=== PATIENT | male | born 1950 | race Caucasian/White ===

== ENCOUNTER → 2016-06-17 | Outpatient (CLI) | payer BC ==
[~2016-06-17] MED LIST: CHOL100010 PO; DICL-201 PO; IBUP600T44 PO; LISI20TA3 PO; MILK1CAP9; MULTCHW; OMEG10007 PO; OXYC1TAB3 PO
[2016-06-17 14:42] LABS: ALT/SGPT 82 U/L (12-78); AST/SGOT 132 U/L (15-37); BLOOD UREA NITROGEN 13 mg/dl (7-18); BUN/CREATININE RATIO 13.6 (10-20); CALCIUM 8.6 mg/dl (8.5-10.1); CARBON DIOXIDE 26 mmol/L (21-32); CHLORIDE 100 mmol/L (98-107); CREATININE 0.97 mg/dl (0.60-1.40); GLUCOSE 150 mg/dl (70-99); SODIUM 136 mmol/L (136-145)
[2016-06-17 14:48] LABS: ALB/GLOB RATIO 0.7 (0.9-2); ALKALINE PHOSPHATASE 108 U/L (45-117); CHOLESTEROL 143 mg/dl (0-200); CHOLESTEROL/HDL RATIO 2.1; HDL CHOLESTEROL 68 mg/dl; LDL CHOLESTEROL CALCULATED 54 mg/dl; PROSTATE SPECIFIC ANTIGEN 0.702 ng/ml (0.000-4.000); TRIGLYCERIDES 105 mg/dl (0-150); VERY LOW DENSITY LIPOPROT CALC 21 mg/dl
[2016-06-17 15:02] LABS: HEMATOCRIT 35.1 % (42-52); MEAN CELL VOLUME 94.6 fL (80-100); MEAN CORPUSCULAR HEMOGLOBIN 35.3 pg (25-34); MEAN CORPUSCULAR HGB CONC 37.3 g/dl (32-36); MEAN PLATELET VOLUME 12.2 fL (7.4-10.4); PLATELET COUNT 61 K/uL (130-400); RED BLOOD COUNT 3.71 M/uL (4.7-6.1); WHITE BLOOD COUNT 6.21 K/uL (4.8-10.8)
[2016-06-17 15:03] LABS: BASO % 0.8 %; BASO ABS # 0.05 K/uL (0-0.2); COMPLETE YES; EOS % 3.2 %; IG% 0.3 %; LYMPH ABS # 1.55 K/uL (1.2-3.4); MONO % 8.4 %; NEUT % 62.3 %; PLT ESTIMATE DECREASED
[2016-06-21 17:30] LABS: HEPATITIS C VIRAL RNA(LOG) PCR 6.63 LOG IU/ML (<1.18)
== END | disposition home or self-care (01) ==
LOC: C.LAB1850 12:28
PROVIDERS: ATTEND Nurse Practitioner Family
DX: I10 Essential (primary) hypertension (principal); E83.42 Hypomagnesemia; B18.2 Chronic viral hepatitis C; Z13.220 Encounter for screening for lipoid disorders; Z12.5 Encounter for screening for malignant neoplasm of prostate

== ENCOUNTER → 2016-06-25 | Outpatient (CLI) | payer BC ==
[2016-06-25 16:18] LABS: FERRITIN 293.9 ng/ml (8.0-388.0)
== END | disposition home or self-care (01) ==
LOC: C.LAB1850 14:38
PROVIDERS: ATTEND Internal Medicine Hematology & Oncology
DX: E83.119 Hemochromatosis, unspecified (principal)

== ENCOUNTER → 2016-07-19 | Outpatient (CLI) | payer BC ==
[~2016-07-19] MED LIST changes: +OPTIRAY 320 IV PRN
--- NOTE | 2016-07-19 16:39 | DIAGNOSTIC IMAGING REPORT ---
ABDOMEN AND PELVIS CT WITH IV AND ORAL CONTRAST CT DOSE: 537.04 mGy.cm HISTORY: Abnormal liver function tests 06/17/16 1234 CREAK 0.97 TECHNIQUE: Multiaxial CT images of the abdomen and pelvis were performed following the use of intravenous and oral contrast. COMPARISON STUDY: None. FINDINGS: Lung bases are clear. Subtle in homogeneity of the liver. Several microcysts. Slight outer cortical scarring which may indicate early cirrhotic change. Mild splenomegaly. Kidneys demonstrate several parapelvic cyst. There is an 11 mm minimally obstructing calculus left renal pelvis. There is an additional 3 mm nonobstructing calcification lower pole left kidney. Pancreas is uniform. Bowel pattern is nonobstructive. Atherosclerotic change and ectasia of the duct of the abdominal aorta as well as pelvic arterial vascular. Chronic sigmoid diverticulosis. IMPRESSION: 1. Subtle in homogeneity of the internal architecture of the liver. 2. Possible early cirrhotic change. 3. Mild splenomegaly. 4. 11 mm minimally obstructing calculus lower aspect left renal pelvis. 5. Chronic sigmoid diverticulosis. Electronically signed by: Remigio Pena M.D. 07/19/2016 4:37 PM Dictated Date/Time: 07/19/2016 4:32 PM
== END | disposition home or self-care (01) ==
LOC: C.CTS 15:55
PROVIDERS: ATTEND Internal Medicine Gastroenterology
DX: B18.2 Chronic viral hepatitis C (principal); R79.89 Other specified abnormal findings of blood chemistry; N20.0 Calculus of kidney; K57.30 Diverticulosis of large intestine without perforation or abscess without bleeding

== ENCOUNTER → 2017-03-21 | Outpatient (CLI) | payer BC ==
[~2017-03-21] MED LIST changes: -OPTIRAY 320 IV PRN
--- NOTE | 2017-03-21 09:46 | DIAGNOSTIC IMAGING REPORT ---
ABDOMINAL ULTRASOUND, RIGHT UPPER QUADRANT HISTORY: CIRRHOSIS R/O HEPATOMA. COMPARISON: Abdomen and pelvis CT 07/19/2016. FINDINGS: Pancreas: The pancreas demonstrates a normal echotexture. Liver: Nodular contour to the liver consistent with cirrhosis. No hepatic masses identified. There are few small subcentimeter cysts. Gallbladder: No gallbladder wall thickening. No gallstones. CBD: 5 mm. Right kidney: No hydronephrosis. A 1.4 cm right renal cyst. IMPRESSION: Cirrhotic liver. No hepatic masses. Electronically signed by: Leandro Hill M.D. 03/21/2017 9:45 AM Dictated Date/Time: 03/21/2017 9:44 AM
== END | disposition home or self-care (01) ==
LOC: C.ULTR 09:10
PROVIDERS: ATTEND Internal Medicine Gastroenterology
DX: K74.60 Unspecified cirrhosis of liver (principal)

== ENCOUNTER → 2017-08-29 | Outpatient (CLI) | payer BC ==
[2017-08-29 14:08] LABS: HEMOGLOBIN A1C 5.8 % (4.5-5.6)
[2017-08-29 16:00] LABS: ALBUMIN 2.6 gm/dl (3.4-5.0); ALT/SGPT 49 U/L (12-78); AST/SGOT 71 U/L (15-37); BLOOD UREA NITROGEN 13 mg/dl (7-18); CALCIUM 8.7 mg/dl (8.5-10.1); CARBON DIOXIDE 24 mmol/L (21-32); CREATININE 1.12 mg/dl (0.60-1.40); GLUCOSE 169 mg/dl (70-99); POTASSIUM 4.5 mmol/L (3.5-5.1); SODIUM 139 mmol/L (136-145)
[2017-08-29 16:03] LABS: ALKALINE PHOSPHATASE 112 U/L (45-117); TOTAL PROTEIN 6.5 gm/dl (6.4-8.2)
== END | disposition home or self-care (01) ==
LOC: C.LAB1850 10:52
PROVIDERS: ATTEND Nurse Practitioner Family
DX: R60.0 Localized edema (principal); R73.9 Hyperglycemia, unspecified

== ENCOUNTER 2019-02-16 14:00 | Inpatient (IN) ==
[2019-02-16] MEDS ORDERED: SODIUM CHLORIDE 0.9% 1000ML 1,000 ML IV SCH (14:30)
[2019-02-16] MEDS ORDERED: FAMOTIDINE 20MG/5ML IV PUSH IV STA (14:55)
[2019-02-16 15:00] LABS: INR 1.3 (0.9-1.1); Prothrombin Time 13.3 Seconds (9.0-12.0)
--- NOTE | 2019-02-16 15:00 | XRay Report ---
XR chest 1V portable CLINICAL HISTORY: Shortness of breath. COMPARISON STUDY: Chest radiograph August 31, 2018. FINDINGS: No pneumothorax or pleural effusion is noted. Interstitial prominence is probably chronic. There is no evidence for pulmonary edema or pneumonia. Cardiomediastinal silhouette is stable. IMPRESSION: No acute cardiopulmonary findings. Electronically signed by: Kirk Arias M.D. 02/16/2019 2:58 PM
[2019-02-16 15:02] LABS: Hematocrit (blood only) 16.7 % (42-52); Hemoglobin 5.9 g/dL (14.0-18.0); Mean Corpuscular Hemoglobin 34.5 pg (25-34); Mean Corpuscular Hgb Conc 35.3 g/dL (32-36); Mean Corpuscular Volume 97.7 fL (80-100); Mean Platelet Volume 10.9 fL (7.4-10.4); Nucleated RBC # (auto) 0.02 K/uL (0-0); Nucleated RBC % (auto) 0.3 %; Platelet Count 92 K/uL (130-400); RDW Coefficient of Variation 18.4 % (11.5-14.5); RDW Standard Deviation 58.5 fL (36.4-46.3); Red Blood Count 1.71 M/uL (4.7-6.1)
[2019-02-16 15:05] LABS: Albumin Level 2.7 gm/dl (3.4-5.0); BUN Creatinine Ratio 36.2 (10-20); Calcium 8.9 mg/dl (8.5-10.1); Creatinine Clr Calc Pharmacy 68.8 ml/min; Est GFR (African American) 85.5; Est GFR (Non-African American) 73.8; Magnesium 1.7 mg/dl (1.8-2.4)
[2019-02-16 15:17] LABS: Albumin Globulin Ratio 0.9 (0.9-2); Bilirubin,Total 1.4 mg/dl (0.2-1); Globulin 2.9 gm/dl (2.5-4.0); Thyroid Stimulating Hormone 4.22 uIu/ml (0.300-4.500); Total Protein 5.6 gm/dl (6.4-8.2); Troponin I 0.125 ng/ml (0-0.045)
[2019-02-16] MEDS ORDERED: SODIUM CHLORIDE 0.9% 250 ML IV PRN ×2 (15:21→18:10)
[2019-02-16 15:32] LABS: Anisocytosis Present; Basophils # (auto) 0.03 K/uL (0-0.2); Basophils % (auto) 0.4 %; Eosinophils # (auto) 0.17 K/uL (0-0.5); Eosinophils % (auto) 2.2 %; Immature Granulocytes # (auto) 0.05 K/uL (0.00-0.02); Immature Granulocytes % (auto) 0.6 %; Lymphocytes # (auto) 0.96 K/uL (1.2-3.4); Lymphocytes % (auto) 12.3 %; Monocytes # (auto) 0.57 K/uL (0.11-0.59); Monocytes % (auto) 7.3 %; Neutrophils # (auto) 6.02 K/uL (1.4-6.5); Neutrophils % (auto) 77.2 %; Polychromasia 1+
[2019-02-16] MEDS ORDERED: PANTOprazole 80 MG in DEXTROSE 5% 100 ML IV ONE (15:45)
[2019-02-16] MEDS ORDERED: OCTREOTIDE BOLUS FROM BAG IV ONE (16:15)
[2019-02-16] MEDS ORDERED: IOVERSOL 100ml IV PRN (16:22)
[2019-02-16] MEDS: OCTREOTIDE ACETATE 500 MCG in 0.9 % SODIUM CHLORIDE 100 ML IV SCH (16:32)
[2019-02-16] MEDS: PANTOprazole 40 MG in DEXTROSE 5% 100 ML IV SCH ×2 (16:36→21:28)
--- NOTE | 2019-02-16 16:38 | CT Scan Report ---
CT abd pelvis IV con only CLINICAL HISTORY: 68 years-old Male presenting with upper abdominal pain, gi bleed, decreased appetit e. TECHNIQUE: Multidetector CT of the abdomen and pelvis was performed after the administration of intra venous contrast. IV contrast: 93 mL of Optiray 320. One or more dose lowering techniques were used co nsistent with the principles of ALARA (as low as reasonably achievable), including automatic exposure control, mA or kV adjustment to individual patient size, and/or use of iterative reconstruction. COMPARISON: 07/19/2016. CT DOSE (mGy.cm): The estimated cumulative dose is 685.85 mGy.cm. FINDINGS: County Director topogram: Unremarkable. Lung bases: Aortic valve, coronary artery, and mitral annular calcification. Normal heart size. Trace left pleural effusion. Minimal dependent changes likely atelectasis. Trace emphysema. Liver: Nodular contour of the liver strongly suggestive of cirrhosis. Scattered punctate well-defined hypodense lesions likely hepatic cysts or hamartomas. No other focal lesion allowing for the single phase of contrast. Patent hepatic vasculature. Biliary: No intrahepatic or extrahepatic biliary ductal dilatation. Gallbladder decompressed. Pancreas: Normal. Spleen: Mildly enlarged measuring 14.0 cm in maximal sagittal dimension. Splenic artery and vein giraldo nt. Prominent perisplenic varices. Adrenal glands: Normal. Kidneys and ureters: Few renal cysts. Nonobstructing left nephrolithiasis. Dominant nonobstructing 11 mm calculus in the left renal pelvis with mild resulting left urothelial thickening and pelviectasis . No hydronephrosis. Ureters nondistended. Bladder: Normal. Pelvic organs: Prostate and seminal vesicles normal. Bowel: Diverticulosis of the descending and proximal to mid sigmoid colon without wall thickening or pericolonic inflammatory change. The appendix is normal. No bowel obstruction. No bowel wall thickeni ng is appreciated. Peritoneal cavity: No free fluid or intraperitoneal gas. Lymph nodes: No enlarged lymph nodes in the abdomen or pelvis. Vasculature: Atherosclerosis of the abdominal aorta, which is only mildly ectatic in the infrarenal p ortion measuring up to 2.4 cm. IVC patent. Prominent varices in the perisplenic and left pararenal re gions. Drainage via the left renal vein. Few paraesophageal varices. Abdominal wall: Normal. Musculoskeletal: Degenerative changes of the spine. Old fracture of the right transverse process of L 3. Several old rib fractures noted. Benign hemangioma suspected in L1. IMPRESSION: 1. Dominant 11 mm nonobstructing left renal pelvic calculus as on prior exam with minimal reactive c hanges of the urothelium. No hydronephrosis. Additional nonobstructing left nephrolithiasis. 2. Cirrhosis with portal hypertension evidenced by varices and splenomegaly. Few paraesophageal vari brian. 3. Diverticulosis coli. No diverticulitis. 4. Additional findings as above. Electronically signed by: Anthony Adler M.D. 02/16/2019 4:37 PM
[2019-02-16] MEDS ORDERED: ONDANSETRON INJ 2 MG/ML 2 ML VIAL IV PRN (17:58)
[2019-02-16] MEDS ORDERED: MAGNESIUM HYDROXIDE SUSP 30 ML UDC PO PRN (17:58)
[2019-02-16] MEDS ORDERED: ACETAMINOPHEN 325 MG TAB PO PRN (17:58)
[2019-02-16] MEDS ORDERED: POLYETHYLENE (MIRALAX) 17 GM PACK PO PRN (17:58)
[2019-02-16] MEDS ORDERED: ZOLPIDEM TARTRATE 5 MG TAB PO PRN (17:58)
[2019-02-16] MEDS ORDERED: ALUMINUM/MAGNESIUM SUSP 30 ML UDC PO PRN (17:58)
--- NOTE | 2019-02-16 18:19 | History & Physical Report ---
Date of Service February 16, 2019 Assessment & Plan (1) GI bleed: Admit to telemetry Hemoglobin on admission is 5.9 ED physician ordered 2 units of blood We will add another third unit. 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 In ED patient had blood work that showed hemoglobin of 5.9. Patient stated that he has been having black stools for the last few days and he contributed it to chocolate or you that he is eating every morning. 3 months ago patient had an EGD that was within normal limits, also had a colonoscopy that showed some diverticulosis but there was nothing significant. Patient continued to drink alcohol until 2 days ago also he is currently active smoker. Patient reported that he started having significant palpitation in the ED his troponin was found to be Elevated at 0.125 but he denies any chest pain. Patient will be admitted for further evaluation management 2 units of packed RBCs were ordered Primary Care Provider: Tom Collins MD Allergies Allergy/AdvReac Type Severity Reaction Status Date / Time No Known Allergies Allergy Verified 02/16/19 15:24 Home Medications Home Medications Medication Instructions Recorded Confirmed Type [place]-3 1 cap PO QAM 10/26/18 02/16/19 History aspirin 81 mg PO QAM 10/26/18 02/16/19 History atorvastatin 20 mg PO HS 10/26/18 02/16/19 History cholecalciferol (vitamin D3) 1,000 unit PO QAM 10/26/18 02/16/19 History [Vitamin D3] cilostazol 100 mg PO BID 10/26/18 02/16/19 History cyanocobalamin (vitamin B-12) 1,000 mcg PO QAM 10/26/18 02/16/19 History [Vitamin B-12] furosemide 20 mg PO DAILY PRN 10/26/18 02/16/19 History losartan-hydrochlorothiazide 1 tab PO DAILY 10/26/18 02/16/19 History multivitamin 1 tab PO QAM 10/26/18 02/16/19 History metformin 500 mg tablet 500 mg PO BID #180 tab 11/03/18 02/16/19 Rx metoprolol succinate [Toprol XL] 25 mg PO BID 02/16/19 02/16/19 History Past Med/Surg History Medical History Cardiac murmur follows with Kip Román Hearing deficit Hepatitis C tx and no longer has Hyperlipidemia Hypertension Prediabetes Surgical History History of colonoscopy History of esophagogastroduodenoscopy (EGD) History of left cataract extraction History of tooth extraction all upper teeth Family History Other No family history of adverse response to anesthesia Social History Preferred Language: Urdu Communication Ability: Effective It Technical Specialist Required: No Beliefs That Will Affect Care: None Current Living Situation: Spouse Feels Safe at Home: Yes Smoking Status: Current every day smoker Second Hand Exposure: Yes (father smoked) ; Hx Alcohol Use: Yes Alcohol type: beer Hx Substance Use: No Review of Systems Review of Systems: Constitutional: No fever and chills but has significant fatigue and exhaustion and generalized weakness Eyes: no blurring of vision / no eye pain / no discharge / no redness ENT: no hearing loss / no epistaxis /no swallowing problems Respiratory: no cough / no wheezing / no SOB / no hemoptysis Cardiovascular: no Chest pain /significant palpitation abdomen: Positive for black stool, no pain / no nausea / no vomiting / no constipation Musculoskeletal: no joint pain / no muscle pain / no joint swelling Genitourinary: no dysuria / no incontinence / no urinary retention Neurologic: no focal weakness / no numbness/tingling / no ataxia Psychiatric: no depression symptoms / no anxiety / no insomnia Endocrine: no excessive thirst / no excessive urination Hematologic: no abnormal bleeding / no bruising / no LN swelling Skin: No rash / no pallor Physical Exam Physical Exam: Physical examination General obese appears to be in moderate distress HEENT: Atraumatic , normocephalic /no jaundice /positive for pallor Neck: Supple /no swelling /central trach Heart: S1/S2 normal/regular rate and rhythm/3/6 para systolic murmur Lungs: Clear to auscultation bilaterally/normal chest with expansion/no rhonchi/no rales/no wheezing/no use of accessory muscles of respiration Abdomen: Soft/nontender/no guarding/no rebound/no organomegaly/no pulsatile mass Musculoskeletal: No swelling/no edema/no tenderness/normal range of motion Neuro exam: Awake alert oriented 3/but slightly confused, I had to repeat what I am saying multiple times, forgetful, repeats the same questions again, cranial nerves II through XII appear to be intact/sensation intact/moves all extre mities/no abnormal movements Psychiatric evaluation: No depressed mood/normal affect Skin: No rash on exposed skin area/no erythema Extremity: Normal pulse/no pitting edema/no clubbing or cyanosis Results & Data Vital Signs (Past 12 Hours) Vital Signs Temp Pulse Pulse Resp BP BP Pulse Ox 02/16/19 18:00 80 22 94/50 L 98 02/16/19 17:40 36.8 C 78 16 103/54 L 96 02/16/19 17:39 78 19 103/54 L 96 02/16/19 17:30 80 20 96/50 L 97 02/16/19 17:27 79 22 93/48 L 97 02/16/19 17:26 80 24 90/49 L 97 02/16/19 17:25 36.7 C 80 17 90/49 L 99 02/16/19 17:06 36.7 C 88 19 131/84 96 02/16/19 17:00 93 H 23 131/84 02/16/19 16:30 92 H 25 H 02/16/19 16:24 92 H 24 129/54 L 99 02/16/19 16:00 89 22 91/55 L 02/16/19 15:30 93 H 21 115/59 L 97 02/16/19 15:00 98 H 26 H 122/66 98 02/16/19 14:34 96 H 96 H 31 H 108/64 108/64 97 02/16/19 14:30 110 H 26 H 99 02/16/19 14:20 99 H 20 123/57 L 98 02/16/19 14:18 96 H 19 98 02/16/19 14:14 101 H 23 123/57 L 99 02/16/19 14:05 36.6 C 102 H 16 102/57 L 98 Code Status & VTE Plan VTE Prophylaxis Plan VTE Prophylaxis will be ordered: Yes PG Care Time/CCT Total # of Minutes Spent Total Time Spent with Patient: 35 minutes total time spent is greater than 50% in coordination of care (as documented) at patient's floor/unit and/or counseling patient/family discussion of care with nursing staff (1) GI bleed GI bleed type/associated pathology: melena Qualified Code(s): K92.1 - Melena
--- NOTE | 2019-02-16 18:39 | CT Scan Report ---
CT head/brain wo con CLINICAL HISTORY: 68 years-old Male presenting with severe confusion. TECHNIQUE: Multidetector CT imaging of the head was performed without the use of intravenous contrast . IV contrast: None. One or more dose lowering techniques were used consistent with the principles of ALARA (as low as reasonably achievable), including automatic exposure control, mA or kV adjustment t o individual patient size, and/or use of iterative reconstruction. COMPARISON: None. CT DOSE (mGy.cm): The estimated cumulative dose is 614.27 mGy.cm. FINDINGS: Senior Product Integrity Engineer topogram: Unremarkable. Proportional ventricular and sulcal prominence, likely age-related parenchymal volume loss. No hemorr dilma. Periventricular and subcortical white matter hypoattenuation, nonspecific but likely indicative of chronic small vessel ischemic change. No acute territorial infarct. No mass effect or midline nikita ft. No extra-axial fluid collection. Paranasal sinuses and mastoid air cells clear. Calvarium intact. Intracranial atherosclerosis noted. Soft tissue infiltration over the occiput, possibly scarring giv en the lack of a history of trauma. IMPRESSION: 1. Chronic small vessel ischemic change. No acute intracranial abnormality. Electronically signed by: Anthony Adler M.D. 02/16/2019 6:37 PM
--- NOTE | 2019-02-16 19:37 | Emergency Department Note ---
Entered by Jaz Coleman acting as a scribe for Shari Armenta DO History of Present Illness General Chief complaint: Cardiac Assessment Stated complaint: SOB Time Seen by Provider: 02/16/19 14:11 Source: patient and family () History of Present Illness Onset (ago): day(s) (3) Location: chest Pain Consistency: + constant Maximum Pain Intensity: 2 Quality: + other (shortness of breath) Associated symptoms: + denies other symptoms (heart burn, abdominal pain) and + other (fatigue, heart pounding, increased bowel movements, black stool, increased urination, cramping in legs); no nausea/vomiting The patient is a 68 year old male who presents to the Emergency Room with complaints of constant shortness of breath beginning 3 days ago. The patient reports fatigue, and heart pounding. He notes increased bowel movements with black stool, and increased urination. He also reports cramping in his legs while walking, stating it resolves itself once he sits. The patient's states he looks more pale than normal. The patient denies nausea, heart burn, and abdominal pain. The patient states he has a heart murmur. He notes he recently took a stress test which resulted in him starting a stronger blood pressure medication. The patient also reports a history of peripheral artery disease, l iver disease, and anemia. The patient's reports a history of a blood transfusion due to high iron. She states the patient then experienced low iron six months after the transfusion and had another procedure. The patient's reports a history of a colonoscopy and endoscopy two months ago. She states both had normal results. The patient states he currently takes baby aspirin. Patient states he believes that the darker colored stools are secondary to his increased ingestion of Oreo cookies recently. Patient denies any prior history of GI bleed. Patient's does state that patient smokes cigarettes and drinks alcohol despite being told by the GI physician to stop. Home Medications Home Medications Medication Instructions Recorded Confirmed Type [place]-3 1 cap PO QAM 10/26/18 02/16/19 History aspirin 81 mg PO QAM 10/26/18 02/16/19 History atorvastatin 20 mg PO HS 10/26/18 02/16/19 History cholecalciferol (vitamin D3) 1,000 unit PO QAM 10/26/18 02/16/19 History [Vitamin D3] cilostazol 100 mg PO BID 10/26/18 02/16/19 History cyanocobalamin (vitamin B-12) 1,000 mcg PO QAM 10/26/18 02/16/19 History [Vitamin B-12] furosemide 20 mg PO DAILY PRN 10/26/18 02/16/19 History losartan-hydrochlorothiazide 1 tab PO DAILY 10/26/18 02/16/19 History multivitamin 1 tab PO QAM 10/26/18 02/16/19 History metformin 500 mg tablet 500 mg PO BID #180 tab 11/03/18 02/16/19 Rx metoprolol succinate [Toprol XL] 25 mg PO BID 02/16/19 02/16/19 History Allergies Allergy/AdvReac Type Severity Reaction Status Date / Time No Known Allergies Allergy Verified 02/16/19 15:24 Past Med/Surg History Medical History Cardiac murmur follows with Kip Román Hearing deficit Hepatitis C tx and no longer has Hyperlipidemia Hypertension Prediabetes Surgical History History of colonoscopy History of esophagogastroduodenoscopy (EGD) History of left cataract extraction History of tooth extraction all upper teeth Family History Other No family history of adverse response to anesthesia Social History Preferred Language: Bruneian Communication Ability: Effective 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 and A total of 10 systems reviewed and were otherwise negative Physical Exam Vital Signs Vital Signs - 24 hr 02/16/19 14:05 02/16/19 14:14 02/16/19 14:18 Temperature 36.6 C Temperature Source Oral Sepsis Recent Fever Within 48 Hours No Sepsis New/Unexplained Change in Mental Status No Sepsis Action Taken by Nursing No Action Required Pulse Rate 102 H 101 H 96 H Pulse Rate [Apical] Pulse Rate from SpO2 Sensor 100 H 96 H Pulse Rhythm [Apical] Respiratory Rate 16 23 19 Respiratory Effort / Characteristics Respiratory Depth Respiratory Pattern Blood Pressure 102/57 L 123/57 L Blood Pressure [Right Arm] Blood Pressure Mean 72 79 Blood Pressure Mean [Right Arm] Blood Pressure Position [Right Arm] Pulse Oximetry 98 99 98 Oxygen Delivery Method Room Air Oxygen Flow Rate 02/16/19 14:20 02/16/19 14:30 02/16/19 14:34 Temperature Temperature Source Sepsis Recent Fever Within 48 Hours Sepsis New/Unexplained Change in Mental Status Sepsis Action Taken by Nursing Pulse Rate 110 H 96 H Pulse Rate [Apical] 99 H 96 H Pulse Rate from SpO2 Sensor 110 H 97 H Pulse Rhythm [Apical] Regular Regular Respiratory Rate 20 26 H 31 H Respiratory Effort / Characteristics Non-Labored Respiratory Depth Normal Respiratory Pattern Regular Blood Pressure 108/64 Blood Pressure [Right Arm] 123/57 L 108/64 Blood Pressure Mean 78 Blood Pressure Mean [Right Arm] 79 78 Blood Pressure Position [Right Arm] Sitting Sitting Pulse Oximetry 98 99 97 Oxygen Delivery Method Room Air Room Air Oxygen Flow Rate 0 02/16/19 15:00 02/16/19 15:30 02/16/19 16:00 Temperature Temperature Source Sepsis Recent Fever Within 48 Hours Sepsis New/Unexplained Change in Mental Status Sepsis Action Taken by Nursing Pulse Rate 98 H 93 H 89 Pulse Rate [Apical] Pulse Rate from SpO2 Sensor 97 H 93 H Pulse Rhythm [Apical] Respiratory Rate 26 H 21 22 Respiratory Effort / Characteristics Respiratory Depth Respiratory Pattern Blood Pressure 122/66 115/59 L 91/55 L Blood Pressure [Right Arm] Blood Pressure Mean 84 77 67 Blood Pressure Mean [Right Arm] Blood Pressure Position [Right Arm] Pulse Oximetry 98 97 Oxygen Delivery Method Oxygen Flow Rate 02/16/19 16:24 02/16/19 16:30 02/16/19 17:00 Temperature Temperature Source Sepsis Recent Fever Within 48 Hours Sepsis New/Unexplained Change in Mental Status Sepsis Action Taken by Nursing Pulse Rate 92 H 92 H 93 H Pulse Rate [Apical] Pulse Rate from SpO2 Sensor 92 H Pulse Rhythm [Apical] Respiratory Rate 24 25 H 23 Respiratory Effort / Characteristics Respiratory Depth Respiratory Pattern Blood Pressure 129/54 L 131/84 Blood Pressure [Right Arm] Blood Pressure Mean 79 99 Blood Pressure Mean [Right Arm] Blood Pressure Position [Right Arm] Pulse Oximetry 99 Oxygen Delivery Method Oxygen Flow Rate 02/16/19 17:06 02/16/19 17:25 02/16/19 17:26 Temperature 36.7 C 36.7 C Temperature Source Oral Oral Sepsis Recent Fever Within 48 Hours Sepsis New/Unexplained Change in Mental Status Sepsis Action Taken by Nursing Pulse Rate 88 80 80 Pulse Rate [Apical] Pulse Rate from SpO2 Sensor 81 Pulse Rhythm [Apical] Respiratory Rate 19 17 24 Respiratory Effort / Characteristics Respiratory Depth Respiratory Pattern Blood Pressure 131/84 90/49 L 90/49 L Blood Pressure [Right Arm] Blood Pressure Mean 99 62 62 Blood Pressure Mean [Right Arm] Blood Pressure Position [Right Arm] Pulse Oximetry 96 99 97 Oxygen Delivery Method Oxygen Flow Rate 02/16/19 17:27 02/16/19 17:30 02/16/19 17:39 Temperature Temperature Source Sepsis Recent Fever Within 48 Hours Sepsis New/Unexplained Change in Mental Status Sepsis Action Taken by Nursing Pulse Rate 79 80 78 Pulse Rate [Apical] Pulse Rate from SpO2 Sensor 79 80 78 Pulse Rhythm [Apical] Respiratory Rate 22 20 19 Respiratory Effort / Characteristics Respiratory Depth Respiratory Pattern Blood Pressure 93/48 L 96/50 L 103/54 L Blood Pressure [Right Arm] Blood Pressure Mean 63 65 70 Blood Pressure Mean [Right Arm] Blood Pressure Position [Right Arm] Pulse Oximetry 97 97 96 Oxygen Delivery Method Oxygen Flow Rate 02/16/19 17:40 Temperature 36.8 C Temperature Source Oral Sepsis Recent Fever Within 48 Hours Sepsis New/Unexplained Change in Mental Status Sepsis Action Taken by Nursing Pulse Rate 78 Pulse Rate [Apical] Pulse Rate from SpO2 Sensor Pulse Rhythm [Apical] Respiratory Rate 16 Respiratory Effort / Characteristics Respiratory Depth Respiratory Pattern Blood Pressure 103/54 L Blood Pressure [Right Arm] Blood Pressure Mean 70 Blood Pressure Mean [Right Arm] Blood Pressure Position [Right Arm] Pulse Oximetry 96 Oxygen Delivery Method Oxygen Flow Rate GENERAL: alert, well appearing, well nourished, no distress, non-toxic EYE EXAM: normal conjunctiva, PERRL and EOM's grossly intact OROPHARYNX: no exudate, no erythema, lips, buccal mucosa, and tongue normal and mucous membranes are moist NECK: supple, no nuchal rigidity, no adenopathy, non-tender LUNGS: Clear to auscultation. Normal chest wall mechanics. No rhonchi, no rales. HEART: no murmurs, S1 normal and S2 normal ABDOMEN: abdomen soft, non-tender, normo-active bowel sounds, no masses, no rebound or guarding. BACK: Back is symmetrical on inspection and there is no deformity, no midline tenderness, no CVA tenderness. SKIN: no rashes and no bruising, no petechiae, slightly pale UPPER EXTREMITIES: upper extremities are grossly normal. FROM, nml pulses b/l. LOWER EXTREMITIES: 1+ lower extremity edema, FROM, nml pulses b/l. NEURO EXAM: Normal sensorium, cranial nerves II-XII grossly intact, normal speech, no gross weakness of arms, no gross weakness of legs. No drift. Finger to nose intact. Gross sensation intact. RECTAL: Chaperoned by Nurse Jayshree. No obvious external hemorrhoids, no anal fissure, stool black in color, heme positive on guaiac testing. Course 1410: Past medical records reviewed. The patient was evaluated in room B11B. A complete history and physical exam was performed. 1435: Updated patient on recent review of EMR and rectal exam performed with nurse equipment [email or web address]. 1538: Patient signed blood consent. All patient questions were answered at bedside. 1555: Upon reevaluation, I discussed findings and results with the patient. The patient verbalized agreement of the treatment plan. I spoke with Dr. Pena of the [facility] Hospitalist Service. The patient will be evaluated for further management and care. Administered Medications Sodium Chloride (Nss 1000ml) 1,000 mls @ 125 mls/hr IV .Q8H EVELINA Stop: 03/18/19 14:29 Last Admin: 02/16/19 14:38 Dose: 125 mls/hr Documented by: [id number] Pantoprazole Sodium 40 mg/ (Dextrose) 100 mls @ 20 mls/hr IV Q5H EVELINA Stop: 02/16/19 20:44 Last Admin: 02/16/19 16:36 Dose: 20 mls/hr Documented by: [id number] Octreotide Acetate 500 mcg/ (Sodium Chloride) 105 mls @ 10 mls/hr IV .[id number] EVELINA Stop: 03/18/19 16:14 Last Admin: 02/16/19 16:32 Dose: 10 mls/hr Documented by: [id number] Ioversol (Optiray 320 100ml) 93 ml IV ONCE PRN PRN Reason: Interaction Checking Stop: 02/20/19 16:21 Last Admin: 02/16/19 16:23 Dose: 1 ml Documented by: [id number] Discontinued Medications Famotidine (Pepcid 20mg Iv Push) 20 mg IV ONE STA Stop: 02/16/19 14:56 Last Admin: 02/16/19 15:05 Dose: 20 mg Documented by: [id number] Pantoprazole Sodium 80 mg/ (Dextrose) 120 mls @ 480 mls/hr IV TODAY@1545 ONE Stop: 02/16/19 15:59 Last Infusion: 02/16/19 16:32 Dose: 0 mls/hr Documented by: [id number] Admin: 02/16/19 16:23 Dose: 480 mls/hr Documented by: [id number] Octreotide Acetate (Sandostatin Bolus From Bag) 50 mcg IV ONE ONE Stop: 02/16/19 16:16 Last Admin: 02/16/19 16:35 Dose: 50 mcg Documented by: [id number] Medical Decision Making Differential Diagnosis Differential diagnosis includes etiologies such as diverticulosis, AVM, coagulopathy, colitis, inflammatory bowel disease, malignancy, Rubia-[place] tear, esophagitis, peptic ulcer disease, variceal bleed, gastritis, epistaxis, fissure, hemorrhoids, as well as others were entertained. Medical Records Attestation: I reviewed the patient's medical records. Home Medications Current Medication List: was personally reviewed by me Laboratory Data Attestation: I reviewed the patient's lab results. Result diagrams: 02/16/19 14:27 02/16/19 14:27 Lab Results 02/16/19 02/16/19 02/16/19 Range/Units 14:27 14:27 14:27 WBC 7.80 (4.8-10.8) K/uL RBC 1.71 L (4.7-6.1) M/uL Hgb 5.9 L* (14.0-18.0) g/dL Hct 16.7 L* (42-52) % MCV 97.7 (80-100) fL MCH 34.5 H (25-34) pg MCHC 35.3 (32-36) g/dL RDW Std Deviation 58.5 H (36.4-46.3) fL RDW Coeff of Coleman 18.4 H (11.5-14.5) % Plt Count 92 L (130-400) K/uL MPV 10.9 H (7.4-10.4) fL Immature Gran % (Auto) 0.6 % Neut % (Auto) 77.2 % Lymph % (Auto) 12.3 % [place] % (Auto) 7.3 % Eos % (Auto) 2.2 % Baso % (Auto) 0.4 % Immature Gran # (Auto) 0.05 H (0.00-0.02) K/uL Neut # (Auto) 6.02 (1.4-6.5) K/uL Lymph # (Auto) 0.96 L (1.2-3.4) K/uL [place] # (Auto) 0.57 (0.11-0.59) K/uL Eos # (Auto) 0.17 (0-0.5) K/uL Baso # (Auto) 0.03 (0-0.2) K/uL Absolute Nucleated RBC 0.02 H (0-0) K/uL Nucleated RBC % (auto) 0.3 % Polychromasia 1+ Anisocytosis Present PT 13.3 H (9.0-12.0) Seconds INR 1.3 H (0.9-1.1) Sodium (136-145) mmol/L Potassium (3.5-5.1) mmol/L Chloride (98-107) mmol/L Carbon Dioxide (21-32) mmol/L Anion Gap (3-11) BUN (7-18) mg/dl Creatinine (0.6-1.4) mg/dl Est Cr Clr Drug Dosing ml/min Est GFR ( Amer) Est GFR (Non-Af Amer) BUN/Creatinine Ratio (10-20) Glucose (70-99) mg/dl Calcium (8.5-10.1) mg/dl Magnesium (1.8-2.4) mg/dl Total Bilirubin (0.2-1) mg/dl AST (15-37) U/L ALT (12-78) U/L Alkaline Phosphatase (45-117) U/L Troponin I (0-0.045) ng/ml NT-Pro-B Natriuret Pep (0-900) pg/ml Total Protein (6.4-8.2) gm/dl Albumin (3.4-5.0) gm/dl Globulin (2.5-4.0) gm/dl Albumin/Globulin Ratio (0.9-2) Lipase (73-393) U/L TSH (0.300-4.500) uIu/ml Blood Type A Negative Blood Type Recheck Antibody Screen NEGATIVE Crossmatch See Detail 02/16/19 02/16/19 Range/Units 14:27 15:38 WBC (4.8-10.8) K/uL RBC (4.7-6.1) M/uL Hgb (14.0-18.0) g/dL Hct (42-52) % MCV (80-100) fL MCH (25-34) pg MCHC (32-36) g/dL RDW Std Deviation (36.4-46.3) fL RDW Coeff of Coleman (11.5-14.5) % Plt Count (130-400) K/uL MPV (7.4-10.4) fL Immature Gran % (Auto) % Neut % (Auto) % Lymph % (Auto) % [place] % (Auto) % Eos % (Auto) % Baso % (Auto) % Immature Gran # (Auto) (0.00-0.02) K/uL Neut # (Auto) (1.4-6.5) K/uL Lymph # (Auto) (1.2-3.4) K/uL [place] # (Auto) (0.11-0.59) K/uL Eos # (Auto) (0-0.5) K/uL Baso # (Auto) (0-0.2) K/uL Absolute Nucleated RBC (0-0) K/uL Nucleated RBC % (auto) % Polychromasia Anisocytosis PT (9.0-12.0) Seconds INR (0.9-1.1) Sodium 138 (136-145) mmol/L Potassium 4.0 (3.5-5.1) mmol/L Chloride 105 (98-107) mmol/L Carbon Dioxide 25 (21-32) mmol/L Anion Gap 8.0 (3-11) BUN 37 H (7-18) mg/dl Creatinine 1.03 (0.6-1.4) mg/dl Est Cr Clr Drug Dosing 68.8 ml/min Est GFR ( Amer) 85.5 Est GFR (Non-Af Amer) 73.8 BUN/Creatinine Ratio 36.2 H (10-20) Glucose 145 H (70-99) mg/dl Calcium 8.9 (8.5-10.1) mg/dl Magnesium 1.7 L (1.8-2.4) mg/dl Total Bilirubin 1.4 H (0.2-1) mg/dl AST 39 H (15-37) U/L ALT 24 (12-78) U/L Alkaline Phosphatase 74 (45-117) U/L Troponin I 0.125 H* (0-0.045) ng/ml NT-Pro-B Natriuret Pep 344 (0-900) pg/ml Total Protein 5.6 L (6.4-8.2) gm/dl Albumin 2.7 L (3.4-5.0) gm/dl Globulin 2.9 (2.5-4.0) gm/dl Albumin/Globulin Ratio 0.9 (0.9-2) Lipase 391 (73-393) U/L TSH 4.220 (0.300-4.500) uIu/ml Blood Type Blood Type Recheck A Negative Antibody Screen Crossmatch Imaging Data Radiologist's Impression: Radiology results as stated below per my review and the radiologist's interpretation: XR chest 1V portable CLINICAL HISTORY: Shortness of breath. COMPARISON STUDY: Chest radiograph August 31, 2018. FINDINGS: No pneumothorax or pleural effusion is noted. Interstitial prominence is probably chronic. There is no evidence for pulmonary edema or pneumonia. Cardiomediastinal silhouette is stable. IMPRESSION: No acute cardiopulmonary findings. Electronically signed by: Kirk Arias M.D. 02/16/2019 2:[address] abd pelvis IV con only CLINICAL HISTORY: 68 years-old Male presenting with upper abdominal pain, gi bleed, decreased appetite. TECHNIQUE: Multidetector CT of the abdomen and pelvis was performed after the administration of intravenous contrast. IV contrast: 93 mL of Optiray 320. One or more dose lowering techniques were used consistent with the principles of ALARA (as low as reasonably achievable), including automatic exposure control, mA or kV adjustment to individual patient size, and/or use of iterative reconstruction. COMPARISON: 07/19/2016. CT DOSE (mGy.cm): The estimated cumulative dose is 685.85 mGy.cm. FINDINGS: Fibreglass Laminator topogram: Unremarkable. Lung bases: Aortic valve, coronary artery, and mitral annular calcification. Normal heart size. Trace left pleural effusion. Minimal dependent changes likely atelectasis. Trace emphysema. Liver: Nodular contour of the liver strongly suggestive of cirrhosis. Scattered punctate well-defined hypodense lesions likely hepatic cysts or hamartomas. No other focal lesion allowing for the single phase of contrast. Patent hepatic vasculature. Biliary: No intrahepatic or extrahepatic biliary ductal dilatation. Gallbladder decompressed. Pancreas: Normal. Spleen: Mildly enlarged measuring 14.0 cm in maximal sagittal dimension. Splenic artery and vein patent. Prominent perisplenic varices. Adrenal glands: Normal. Kidneys and ureters: Few renal cysts. Nonobstructing left nephrolithiasis. Dominant nonobstructing 11 mm calculus in the left renal pelvis with mild resulting left urothelial thickening and pelviectasis. No hydronephrosis. Ureters nondistended. Bladder: Normal. Pelvic organs: Prostate and seminal vesicles normal. Bowel: Diverticulosis of the descending and proximal to mid sigmoid colon witho ut wall thickening or pericolonic inflammatory change. The appendix is normal. No bowel obstruction. No bowel wall thickening is appreciated. Peritoneal cavity: No free fluid or intraperitoneal gas. Lymph nodes: No enlarged lymph nodes in the abdomen or pelvis. Vasculature: Atherosclerosis of the abdominal aorta, which is only mildly ectatic in the infrarenal portion measuring up to 2.4 cm. IVC patent. Prominent varices in the perisplenic and left pararenal regions. Drainage via the left renal vein. Few paraesophageal varices. Abdominal wall: Normal. Musculoskeletal: Degenerative changes of the spine. Old fracture of the right transverse process of L3. Several old rib fractures noted. Benign hemangioma suspected in L1. IMPRESSION: 1. Dominant 11 mm nonobstructing left renal pelvic calculus as on prior exam with minimal reactive changes of the urothelium. No hydronephrosis. Additional nonobstructing left nephrolithiasis. 2. Cirrhosis with portal hypertension evidenced by varices and splenomegaly. Few paraesophageal varices. 3. Diverticulosis coli. No diverticulitis. 4. Additional findings as above. Electronically signed by: Anthony Adler M.D. 02/16/2019 4:37 PM ECG Data Attestation: I personally reviewed and interpreted this ECG as follows: Indication: chest pain Rate (beats per minute): 98 Rhythm: sinus rhythm Findings: + other (normal axis, normal QRS, prolonged QTC, ) and + T-wave inversion (at Lead 1 and AVL); no ST elevation Blood Pressure Blood Pressure Findings: Low blood pressure Blood Pressure Disposition: further management by hospitalist GEORGE Haddad Patient here well-appearing despite complaints and asymptomatic while at rest. Patient hemodynamically stable. Due to patient's reported darker stools despite history of iron infusions, rectal exam was performed after basic physical exam and patient found to have heme positive stools. Patient's H&H came back severely anemic, which likely explains his recent increased fatigue and dyspnea on exertion. Patient denied any chest pain, however patient's troponin was elevated and EKG abnormal. There was no old EKG in the EMR for comparative purposes. I suspect the elevated troponin is secondary to demand ischemia due to the profound anemia. Patient does have history of alcohol abuse as well as hiatal hernia, despite negative EGD/[facility] 3 months ago, it is possible patient is having a new upper GI bleed contributing to the melanotic stool. Patient denies any recurrent use of NSAIDs. Patient does take aspirin daily. 2 units of packed red blood cells were ordered on the patient after he signed the blood consent and questions were answered at bedside. Patient was also started on a Protonix drip, and after discussion with the hospitalist was also started on an octreotide drip. Patient remained hemodynamically stable in the emergency room. He and the were made aware of all results and were in agreement with plan for additional inpatient evaluation and treatment and likely recurrent GI evaluation. Patient had no episodes of melanotic bowel movements here, no nausea or vomiting. Impression & Plan GI bleed, Anemia, Elevated troponin, Weakness, Thrombocytopenia Critical Care Time Critical Care Time: Yes Total Critical Care Time: 60 Discharge Plan Visit Data Chief Complaint: Cardiac Assessment Stated Complaint: SOB ED Provider: Shari Armenta Discharge Problem: GI bleed, Anemia, Elevated troponin, Weakness, Thrombocytopenia Patient Disposition: Being Evaluated by Hospitalist Discharge Instructions Interventions: ED Discharge Assessment Last Done: 02/16/19 19:02 Discharge Problem: GI bleed Qualifiers: GI bleed type/associated pathology: melena Qualified Code(s): K92.1 - Melena Anemia Qualifiers: Anemia type: unspecified type Qualified Code(s): D64.9 - Anemia, unspecified The scribe's documentation has been prepared under my direction and personally reviewed by me in its entirety. I confirm that the note above accurately reflects all work, treatment, procedures, and medical decision making performed by me.
[2019-02-16 20:14] LABS: Base Excess VBG -2.7 mEq/L; HCO3 VBG 22 mmol/L; PCO2 VBG 39 mmHg (38-50); PO2 VBG 24 mmHg; pH VBG 7.38 (7.36-7.41)
[2019-02-16 20:15] LABS: Oxygen Saturation VBG < 60.0 %
[2019-02-16 20:16] LABS: Hemoglobin 6.7 g/dL (14.0-18.0)
[2019-02-16] MEDS ORDERED: CILOSTAZOL 100 MG TAB PO SCH (21:00)
[2019-02-16] MEDS ORDERED: ATORVASTATIN 20 MG TAB PO SCH (21:00)
[2019-02-16] MEDS ORDERED: Nursing to Pharmacy Communication ONE (21:50)
[2019-02-17] MEDS: SODIUM CHLORIDE 0.9% 1000ML 1,000 ML IV SCH ×3 (00:21→20:39)
[2019-02-17] MEDS ORDERED: SODIUM CHLORIDE 0.9% 250 ML IV PRN (00:33)
[2019-02-17] MEDS: OCTREOTIDE ACETATE 500 MCG in 0.9 % SODIUM CHLORIDE 100 ML IV SCH (01:12)
[2019-02-17] MEDS: PANTOprazole 40 MG in DEXTROSE 5% 100 ML IV SCH ×3 (02:39→23:42)
[2019-02-17 07:22] LABS: Appearance Urine Clear (Clear); Bacteria Urine Automated Negative (Negative); Bilirubin Urine Negative (Negative); Blood Urine Trace (Negative); Color Urine Yellow; Glucose Urine UA Negative (Negative); Ketones Urine Negative (Negative); Leukocyte Esterase Urine Negative (Negative); Nitrite Urine Negative (Negative); Protein Urine Negative (Negative); RBC Urine Automated 0-4 /hpf (0-4); Specific Gravity Urine 1.029 (1.000-1.030); Urobilinogen Urine Negative (Negative)
[2019-02-17 07:31] LABS: Hematocrit (blood only) 20.8 % (42-52); Hemoglobin 7.2 g/dL (14.0-18.0); Mean Corpuscular Hemoglobin 32.6 pg (25-34); Mean Corpuscular Hgb Conc 34.6 g/dL (32-36); Mean Corpuscular Volume 94.1 fL (80-100); Mean Platelet Volume 10.4 fL (7.4-10.4); Nucleated RBC # (auto) 0.04 K/uL (0-0); Nucleated RBC % (auto) 0.6 %; Platelet Count 61 K/uL (130-400); RDW Coefficient of Variation 18.7 % (11.5-14.5); RDW Standard Deviation 59.2 fL (36.4-46.3); Red Blood Count 2.21 M/uL (4.7-6.1); White Blood Count 7.28 K/uL (4.8-10.8)
[2019-02-17 07:39] LABS: Anisocytosis Present; Basophils # (auto) 0.02 K/uL (0-0.2); Basophils % (auto) 0.3 %; Eosinophils # (auto) 0.31 K/uL (0-0.5); Eosinophils % (auto) 4.3 %; Immature Granulocytes # (auto) 0.02 K/uL (0.00-0.02); Immature Granulocytes % (auto) 0.3 %; Lymphocytes # (auto) 1.38 K/uL (1.2-3.4); Monocytes # (auto) 0.68 K/uL (0.11-0.59); Monocytes % (auto) 9.3 %; Neutrophils # (auto) 4.87 K/uL (1.4-6.5); Neutrophils % (auto) 66.8 %; Polychromasia 1+; Spherocytes 1+
[2019-02-17 07:44] LABS: Albumin Level 2.4 gm/dl (3.4-5.0); BUN Creatinine Ratio 30.5 (10-20); Calcium 7.7 mg/dl (8.5-10.1); Creatinine Clr Calc Pharmacy 63.9 ml/min; Est GFR (African American) 78.1; Est GFR (Non-African American) 67.4; Magnesium 1.6 mg/dl (1.8-2.4); Potassium 4.3 mmol/L (3.5-5.1)
[2019-02-17 07:46] LABS: Bilirubin,Total 1.1 mg/dl (0.2-1); Globulin 2.3 gm/dl (2.5-4.0); Total Protein 4.7 gm/dl (6.4-8.2)
[2019-02-17] MEDS: THIAMINE HCL 200 MG in SODIUM CHLORIDE 0.9% 50 ML IV SCH ×3 (09:40→20:39)
[2019-02-17] MEDS: ATORVASTATIN 20 MG TAB PO SCH (09:44)
--- NOTE | 2019-02-17 10:58 | Hospitalist Progress Note ---
Date of Service February 17, 2019 Assessment & Plan (1) GI bleed: Appreciate GI recommendations. Planning on EGD on Tuesday. No varices on recent EGD. Stop octreotide and pantoprazole drip after 24 hours. Continue on pantoprazole IV 40 mg twice daily Hemoglobin on admission is 5.9, now 7.2 s/p 3 units transfused. Repeat in PM. Suspected UGI bleed due to melena Stop ASA and pletal, will defer to GI whether to continue these on d/c SCD boot for DVT prophylaxis (2) Elevated troponin: Secondary to demand-ischemia (3) Liver cirrhosis: Secondary to alcohol, chronic hep C Continued counselling regarding quitting smoking and alcohol (4) Confusion: As per he is currently at baseline so appears resolved CT head - nill acute Ammonia 36.7 pH 7.38 on VBG TSH WNL Subjective Patient reports no ongoing melena since admission, previously having black stools 3-4 times a day which he put down to eating too many oreos. Chest pain and shortness of breath have resolved. He feels he is back to his baseline and wondering whether he can be discharged. Review of Systems Review of Systems: All systems reviewed & are unremarkable except as noted in HPI & below Physical Exam Constitutional: + well hydrated and + malnourished; no acute distress and no altered mental status Eyes: PERRL ENMT: external ear and nose normal, oropharynx normal Respiratory: normal respiratory effort, lungs clear to auscultation Cardiovascular: Rate/Rhythm: regular rate and regular rhythm Heart Sounds: normal S2 and + murmur (systolic throughout, loudest RUSB) Extremities: no edema Gastrointestinal (Abdomen): Inspection/Auscultation: abdomen normal to ins pection Percussion/Palpation: abdomen soft; abdomen nontender, no guarding and no hepatomegaly Skin: no rashes, warm and dry Neurologic: moves all extremities and awake; no focal motor deficits Speech / Cognition: normal speech Results & Data Vital Signs (Past 12 Hours) Vital Signs Temp Pulse Pulse Resp BP BP Pulse Ox 02/17/19 07:56 98.2 F 70 19 150/77 H 96 02/17/19 03:03 98.8 F 68 17 116/56 L 94 02/17/19 02:10 68 19 129/56 L 91 02/17/19 01:40 73 18 97/49 L 94 02/17/19 01:15 98.4 F 65 20 113/55 L 96 02/17/19 01:08 98.4 F 64 18 103/51 L 02/17/19 00:00 63 02/16/19 23:42 98.6 F 67 17 98/47 L 97 PG Care Time/CCT Total # of Minutes Spent Total Time Spent with Patient: Total time spent is greater than 50% in coordination of care (as documented) at patient's floor/unit and/or counseling patient: (1) GI bleed GI bleed type/associated pathology: melena Qualified Code(s): K92.1 - Melena
--- NOTE | 2019-02-17 11:57 | Gastrointestinal Consultation ---
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 Alternatively variceal bleed. Holding on to the transfused blood. Patient not taking aspirin. Ok with full liquids now, if he bleeds keep NPO for urgent EGD. Else plan scope on Tuesday. IV ppi, Stop octreotide after 24 hrs. Despite multiple encouter with providers relatively low insight into his medical issues. He is still drinking and recently smoked. 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 Brown Attending Physician: Abel Brown MD History of Present Illness Patient experienced black stool X 3-4 time day before yesterday, chest pressure and palpitation and was in the ER. No more bowel movements since yesterday morning. Asymptomatic after two units of blood. Tummy otherwise feeling fine. no pain. Recent EGD and colon, no report of varices or ulcerations. Patient in addition to his usual beers, tried a new hard liquor and drank a "little more than usual" per . Allergies Allergy/AdvReac Type Severity Reaction Status Date / Time No Known Allergies Allergy Verified 02/16/19 15:24 Home Medications Home Medications Medication Instructions Recorded Confirmed Type [place]-3 1 cap PO QAM 10/26/18 02/16/19 History atorvastatin 20 mg PO HS 10/26/18 02/16/19 History cholecalciferol (vitamin D3) 1,000 unit PO QAM 10/26/18 02/16/19 History [Vitamin D3] cilostazol 100 mg PO BID 10/26/18 02/16/19 History cyanocobalamin (vitamin B-12) 1,000 mcg PO QAM 10/26/18 02/16/19 History [Vitamin B-12] furosemide 20 mg PO DAILY PRN 10/26/18 02/16/19 History losartan-hydrochlorothiazide 1 tab PO DAILY 10/26/18 02/16/19 History multivitamin 1 tab PO QAM 10/26/18 02/16/19 History metformin 500 mg tablet 500 mg PO BID #180 tab 11/03/18 02/16/19 Rx metoprolol succinate [Toprol XL] 25 mg PO BID 02/16/19 02/16/19 History Patient History Medical History Cardiac murmur follows with Kip Román Hearing deficit Hepatitis C tx and no longer has Hyperlipidemia Hypertension Prediabetes Surgical History History of colonoscopy History of esophagogastroduodenoscopy (EGD) History of left cataract extraction History of tooth extraction all upper teeth Family History Other No family history of adverse response to anesthesia Social History Preferred Language: [place] Communication Ability: Effective 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 Beliefs That Will Affect Care: None Current Living Situation: Spouse Feels Safe at Home: Yes Smoking Status: Former smoker Tobacco Type: cigarettes, pipe and cigars ; Cigarettes Per Day: 8 ; Second Hand Exposure: Yes (father smoked) ; Hx Alcohol Use: Yes Alcohol type: beer Hx Substance Use: No Review of Systems Review of Systems: Constitutional: No fever and chills but has significant fatigue and exhaustion and generalized weakness Eyes: no blurring of vision / no eye pain / no discharge / no redness ENT: no hearing loss / no epistaxis /no swallowing problems Respiratory: no cough / no wheezing / no SOB / no hemoptysis Cardiovascular: no Chest pain /significant palpitation abdomen: Positive for black stool, no pain / no nausea / no vomiting / no constipation Musculoskeletal: no joint pain / no muscle pain / no joint swelling Genitourinary: no dysuria / no incontinence / no urinary retention Neurologic: no focal weakness / no numbness/tingling / no ataxia Psychiatric:occasional confusion Endocrine: no excessive thirst / no excessive urination Hematologic: no abnormal bleeding / no bruising / no LN swelling Skin: No rash / no pallor Gastrointestinal: no abdominal pain, no hematemesis and no cramping no bm since admission Physical Exam Cardiovascular: Rate/Rhythm: regular rate and regular rhythm Heart Sounds: + murmur Gastrointestinal (Abdomen): Inspection/Auscultation: + abdomen distended Percussion/Palpation: abdomen soft; no abdominal mass and no ascites Skin: normal turgor; no rashes and no jaundice Results & Data Vital Signs (Past 12 Hours) Vital Signs Temp Pulse Pulse Resp BP BP Pulse Ox 02/17/19 11:21 37.1 C 66 19 137/57 L 96 02/17/19 07:56 36.8 C 70 19 150/77 H 96 02/17/19 03:03 37.1 C 68 17 116/56 L 94 02/17/19 02:10 68 19 129/56 L 91 02/17/19 01:40 73 18 97/49 L 94 02/17/19 01:15 36.9 C 65 20 113/55 L 96 02/17/19 01:08 36.9 C 64 18 103/51 L 02/17/19 00:00 63 (1) GI bleed GI bleed type/associated pathology: melena Qualified Code(s): K92.1 - Melena
[2019-02-17 16:04] LABS: Appearance Urine Clear (Clear); Bilirubin Urine Negative (Negative); Blood Urine Negative (Negative); Color Urine Yellow; Glucose Urine UA Negative (Negative); Ketones Urine Negative (Negative); Leukocyte Esterase Urine Negative (Negative); Nitrite Urine Negative (Negative); Protein Urine Negative (Negative); Specific Gravity Urine 1.024 (1.000-1.030); Urobilinogen Urine Negative (Negative)
[2019-02-17 16:41] LABS: Hematocrit (blood only) 21.5 % (42-52); Hemoglobin 7.5 g/dL (14.0-18.0); Mean Corpuscular Hgb Conc 34.9 g/dL (32-36); Mean Corpuscular Volume 94.7 fL (80-100); RDW Coefficient of Variation 18.9 % (11.5-14.5); RDW Standard Deviation 60.9 fL (36.4-46.3); Red Blood Count 2.27 M/uL (4.7-6.1); White Blood Count 5.63 K/uL (4.8-10.8)
[2019-02-17 16:53] LABS: Mean Platelet Volume 10.9 fL (7.4-10.4); Platelet Count 59 K/uL (130-400)
[2019-02-17] MEDS: PANTOprazole 40 MG in SYRINGE 0 ML IV SCH (20:39)
[2019-02-18 06:05] LABS: Hematocrit (blood only) 21.4 % (42-52); Hemoglobin 7.4 g/dL (14.0-18.0); Mean Corpuscular Hemoglobin 32.3 pg (25-34); Mean Corpuscular Hgb Conc 34.6 g/dL (32-36); Mean Corpuscular Volume 93.4 fL (80-100); Mean Platelet Volume 10.1 fL (7.4-10.4); Platelet Count 58 K/uL (130-400); RDW Coefficient of Variation 18.5 % (11.5-14.5); RDW Standard Deviation 59.8 fL (36.4-46.3); Red Blood Count 2.29 M/uL (4.7-6.1); White Blood Count 4.69 K/uL (4.8-10.8)
[2019-02-18 06:16] LABS: INR 1.3 (0.9-1.1)
[2019-02-18 06:53] LABS: Albumin Level 2.6 gm/dl (3.4-5.0); Anisocytosis Present; BUN Creatinine Ratio 23.8 (10-20); Basophilic Stippling 1+; Basophils # (auto) 0.01 K/uL (0-0.2); Basophils % (auto) 0.2 %; Calcium 7.3 mg/dl (8.5-10.1); Creatinine Clr Calc Pharmacy 71.6 ml/min; Eosinophils # (auto) 0.32 K/uL (0-0.5); Eosinophils % (auto) 6.8 %; Est GFR (African American) 88.6; Est GFR (Non-African American) 76.5; Immature Granulocytes # (auto) 0.01 K/uL (0.00-0.02); Immature Granulocytes % (auto) 0.2 %; Lymphocytes # (auto) 1.09 K/uL (1.2-3.4); Lymphocytes % (auto) 23.2 %; Monocytes # (auto) 0.45 K/uL (0.11-0.59); Monocytes % (auto) 9.6 %; Neutrophils # (auto) 2.81 K/uL (1.4-6.5); Polychromasia 1+; Potassium 3.7 mmol/L (3.5-5.1)
[2019-02-18 06:56] LABS: Bilirubin,Total 1.3 mg/dl (0.2-1); Globulin 2.5 gm/dl (2.5-4.0); Total Protein 5.1 gm/dl (6.4-8.2)
[2019-02-18] MEDS: ATORVASTATIN 20 MG TAB PO SCH (08:03)
[2019-02-18] MEDS: PANTOprazole 40 MG in SYRINGE 0 ML IV SCH ×2 (08:04→20:05)
[2019-02-18] MEDS: THIAMINE HCL 200 MG in SODIUM CHLORIDE 0.9% 50 ML IV SCH (08:07)
--- NOTE | 2019-02-18 09:27 | Gastroenterology Progress Note ---
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 Alternatively variceal bleed. Holding on to the transfused blood. Patient not taking aspirin. Ok with full liquids now, if he bleeds keep NPO for urgent EGD. Else plan scope on Tuesday. IV ppi, Stop octreotide after 24 hrs. Despite multiple encouter with providers relatively low insight into his medical issues. He is still drinking and recently smoked. 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 Chest pain and shortness of breath have resolved. He feels he is back to his baseline and wondering whether he can be discharged. Results & Data Vital Signs (Past 12 Hours) Vital Signs Temp Pulse Pulse Resp BP BP Pulse Ox 02/18/19 09:01 83 02/18/19 07:20 36.9 C 86 22 167/62 H 93 02/18/19 04:05 36.8 C 77 18 156/72 H 93 02/17/19 23:35 83 02/17/19 23:11 37.0 C 75 19 156/69 H 95 (1) GI bleed GI bleed type/associated pathology: melena Qualified Code(s): K92.1 - Melena
--- NOTE | 2019-02-18 09:31 | Gastroenterology Progress Note ---
Date of Service February 18, 2019 Assessment & Plan (1) GI bleed: Plan EGD tomorrow. Advance diet, but keep NPO after midnight. Subjective Doing well. No BM. Counts up. Review of Systems Gastrointestinal: no abdominal pain and no diarrhea/loose stools Physical Exam Gastrointestinal (Abdomen): Inspection/Auscultation: abdomen normal to inspection Percussion/Palpation: abdomen soft Results & Data Vital Signs (Past 12 Hours) Vital Signs Temp Pulse Pulse Resp BP BP Pulse Ox 02/18/19 09:01 83 02/18/19 07:20 36.9 C 86 22 167/62 H 93 02/18/19 04:05 36.8 C 77 18 156/72 H 93 02/17/19 23:35 83 02/17/19 23:11 37.0 C 75 19 156/69 H 95 (1) GI bleed GI bleed type/associated pathology: melena Qualified Code(s): K92.1 - Melena
[2019-02-18] MEDS: SODIUM CHLORIDE 0.9% 1000ML 1,000 ML IV SCH (10:01)
--- NOTE | 2019-02-19 01:18 | Hospitalist Progress Note ---
Date of Service February 18, 2019 Assessment & Plan (1) GI bleed: Appreciate GI recommendations. Planning on EGD on Tuesday. No varices on recent EGD. Continue pantoprazole IV 40 mg twice daily Hemoglobin on admission is 5.9, now 7.4 (stable since 3 units transfused). Repeat in AM. 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 No further melenic bowel movements. No abdominal pain, nausea or vomiting. Review of Systems Review of Systems: All systems reviewed & are unremarkable except as noted in HPI & below Physical Exam Constitutional: + well hydrated and + malnourished; no acute distress and no altered mental status Eyes: + anicteric sclerae ENMT: external ear and nose normal, oropharynx normal Neck: normal visual inspection and trachea midline Respiratory: normal respiratory effort, lungs clear to auscultation Cardiovascular: Rate/Rhythm: regular rate and regular rhythm Heart Sounds: normal S2 and + murmur (systolic throughout, loudest RUSB) Extremities: no edema Gastrointestinal (Abdomen): Inspection/Auscultation: abdomen normal to inspection Percussion/Palpation: abdomen soft; abdomen nontender, no guarding and no hepatomegaly Skin: no rashes, warm and dry Neurologic: moves all extremities and awake; no focal motor deficits Speech / Cognition: normal speech Psychiatric: A+Ox3, euthymic affect Results & Data Vital Signs (Past 12 Hours) Vital Signs Temp Pulse Pulse Resp BP BP Pulse Ox 02/19/19 00:00 65 02/18/19 23:26 98.1 F 87 19 114/55 L 96 02/18/19 19:43 98.6 F 74 20 164/73 H 95 02/18/19 15:50 98.5 F 71 24 158/74 H 96 PG Care Time/CCT Total # of Minutes Spent Total Time Spent with Patient: Total time spent is greater than 50% in coordination of care (as documented) at patient's floor/unit and/or counseling patient: (1) GI bleed GI bleed type/associated pathology: melena Qualified Code(s): K92.1 - Melena
[2019-02-19 06:06] LABS: Hematocrit (blood only) 21.2 % (42-52); Hemoglobin 7.2 g/dL (14.0-18.0); Mean Corpuscular Volume 94.2 fL (80-100); RDW Coefficient of Variation 17.5 % (11.5-14.5); RDW Standard Deviation 59.7 fL (36.4-46.3); Red Blood Count 2.25 M/uL (4.7-6.1); White Blood Count 4.19 K/uL (4.8-10.8)
[2019-02-19 06:13] LABS: Mean Platelet Volume 10.7 fL (7.4-10.4); Platelet Count 56 K/uL (130-400)
[2019-02-19 06:20] LABS: INR 1.3 (0.9-1.1); Partial Thromboplastin Ratio 0.9; Partial Thromboplastin Time 23.3 Seconds (21.0-31.0); Prothrombin Time 13.1 Seconds (9.0-12.0)
[2019-02-19 06:42] LABS: Albumin Level 2.4 gm/dl (3.4-5.0); BUN Creatinine Ratio 17.6 (10-20); Calcium 7.3 mg/dl (8.5-10.1); Creatinine Clr Calc Pharmacy 81.2 ml/min; Est GFR (African American) 101.6; Est GFR (Non-African American) 87.6; Globulin 2.4 gm/dl (2.5-4.0); Potassium 3.7 mmol/L (3.5-5.1); Total Protein 4.8 gm/dl (6.4-8.2)
[2019-02-19] MEDS: ATORVASTATIN 20 MG TAB PO SCH (08:27)
[2019-02-19] MEDS: PANTOprazole 40 MG in SYRINGE 0 ML IV SCH ×2 (08:27→20:13)
[2019-02-19] MEDS: THIAMINE HCL 100 MG TAB PO SCH (08:28)
--- NOTE | 2019-02-19 15:03 | History & Physical Report ---
Date of Service February 19, 2019 History of Present Illness Chief Complaint: melena Primary Care Provider: Tom Collins MD For EGD Allergies Allergy/AdvReac Type Severity Reaction Status Date / Time No Known Allergies Allergy Verified 02/19/19 14:54 Home Medications Home Medications Medication Instructions Recorded Confirmed Type [place]-3 1 cap PO QAM 10/26/18 02/16/19 History atorvastatin 20 mg PO HS 10/26/18 02/16/19 History cholecalciferol (vitamin D3) 1,000 unit PO QAM 10/26/18 02/16/19 History [Vitamin D3] cilostazol 100 mg PO BID 10/26/18 02/16/19 History cyanocobalamin (vitamin B-12) 1,000 mcg PO QAM 10/26/18 02/16/19 History [Vitamin B-12] furosemide 20 mg PO DAILY PRN 10/26/18 02/16/19 History losartan-hydrochlorothiazide 1 tab PO DAILY 10/26/18 02/16/19 History multivitamin 1 tab PO QAM 10/26/18 02/16/19 History metformin 500 mg tablet 500 mg PO BID #180 tab 11/03/18 02/16/19 Rx metoprolol succinate [Toprol XL] 25 mg PO BID 02/16/19 02/16/19 History Past Med/Surg History Medical History Cardiac murmur follows with Kip Román Hearing deficit Hepatitis C tx and no longer has Hyperlipidemia Hypertension Prediabetes Surgical History History of colonoscopy History of esophagogastroduodenoscopy (EGD) History of left cataract extraction History of tooth extraction all upper teeth Family History Other No family history of adverse response to anesthesia Social History Preferred Language: [place] Communication Ability: Effective 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 Beliefs That Will Affect Care: None Current Living Situation: Spouse Feels Safe at Home: Yes Smoking Status: Former smoker Tobacco Type: cigarettes, pipe and cigars ; Cigarettes Per Day: 8 ; Second Hand Exposure: Yes (father smoked) ; Hx Alcohol Use: Yes Alcohol type: beer Hx Substance Use: No Physical Exam Constitutional: well developed and well nourished Respiratory: normal respiratory effort Cardiovascular: Rate/Rhythm: regular rate and regular rhythm Gastrointestinal (Abdomen): Percussion/Palpation: abdomen soft Results & Data Vital Signs (Past 12 Hours) Vital Signs Temp Pulse Resp BP BP Pulse Ox 02/19/19 14:50 36.9 C 73 20 188/73 H 98 02/19/19 07:10 36.9 C 71 16 118/47 L 94 02/19/19 03:23 37.0 C 83 18 129/60 93 Code Status & VTE Plan VTE Prophylaxis Plan VTE Prophylaxis will be ordered: Yes
--- NOTE | 2019-02-19 15:08 | Anesthesiology Consultation ---
Date of Service February 19, 2019 Assessment & Plan (1) Encounter for pre-operative examination: Chart Review Chart Review: Acceptable Risk for Surgery and Patient NOT seen in Pre Admission Testing Consults Requested none ASA ASA4 Proposed Anesthesia Anesthesia Type: MAC Risk / Benefits Reviewed With: PT / POA / Parent / Guardian, Accepts Plan and I nformed Consent Obtained History Surgery Operation Date: 02/19/19 09:00 Proposed Procedures p Esophagogastroduodenoscopy Dr Satish Covarrubias Height/Weight Height: 5 ft 6 in Weight: 85.4 kg Allergies Allergy/AdvReac Type Severity Reaction Status Date / Time No Known Allergies Allergy Verified 02/19/19 14:54 Medications Home Medications Medication Instructions Recorded Confirmed Last Taken [place]-3 1 cap PO QAM 10/26/18 02/16/19 11/06/18 07:00 atorvastatin 20 mg PO HS 10/26/18 02/16/19 11/06/18 22:00 cholecalciferol (vitamin D3) 1,000 unit PO QAM 10/26/18 02/16/19 11/06/18 07:00 [Vitamin D3] cilostazol 100 mg PO BID 10/26/18 02/16/19 11/06/18 17:00 cyanocobalamin (vitamin B-12) 1,000 mcg PO QAM 10/26/18 02/16/19 11/06/18 07:00 [Vitamin B-12] furosemide 20 mg PO DAILY PRN 10/26/18 02/16/19 Unknown losartan-hydrochlorothiazide 1 tab PO DAILY 10/26/18 02/16/19 11/06/18 17:00 multivitamin 1 tab PO QAM 10/26/18 02/16/19 11/06/18 07:00 metformin 500 mg tablet 500 mg PO BID #180 tab 11/03/18 02/16/19 11/06/18 17:00 metoprolol succinate [Toprol XL] 25 mg PO BID 02/16/19 02/16/19 Unknown Active Medications Generic Name Dose Route Start Last Admin Trade Name Freq PRN Reason Stop Dose Admin Atorvastatin Calcium 20 mg 02/17/19 09:00 02/19/19 08:27 Lipitor PO 03/19/19 08:59 20 mg QAM EVELINA Administration Pantoprazole Sodium 40 mg/ 10 mls @ 5 mls/min 02/17/19 21:00 02/19/19 08:27 Syringe IV 03/19/19 20:59 5 mls/min BID@0900,2100 EVELINA Administration Ioversol 93 ml 02/16/19 16:22 02/16/19 16:23 Optiray 320 100ml IV 02/20/19 16:21 1 ml ONCE PRN Administration Interaction Checking Thiamine HCl 100 mg 02/19/19 09:00 02/19/19 08:28 Vitamin B-1 PO 03/21/19 08:59 100 mg QAM EVELINA Administration NPO Date Last Intake of Fluids: 02/19/19 Time Last Intake of Fluids: 08:00 Last Intake of Fluids Comment: sips with meds Date Last Intake of Solids: 02/16/19 Time Last Intake of Solids: 13:00 Past Medical History Medical History Cardiac murmur follows with Kip Román Hearing deficit Hepatitis C tx and no longer has Hyperlipidemia Hypertension Prediabetes Exercise / Class Metabolic Activity II 4-5 Yardwork/Stairs/Walk up hill Past Family History Family History Other No family history of adverse response to anesthesia Past Surgical History Surgical History History of colonoscopy History of esophagogastroduodenoscopy (EGD) History of left cataract extraction History of tooth extraction all upper teeth Past Anesthesia History No Hx of Anesthesia Complications and No Family Hx of Anesthesia Complications History of PONV No Hx of PONV and No Hx of Motion Sickness Social History Smoking Status: Former smoker tobacco type: cigarettes, pipe and cigars Smoking cigarettes per day: 8 Do You Dip or Chew Tobacco: No Smoking End Date: 2 weeks ago Hx Alcohol Use: Yes Alcohol type: beer alcohol intake frequency: 3 or more drinks per day Alcohol Intake Frequency Comment: 3-4 cans of beer a day to help with sleep Hx Substance Use: No substance use type: does not use Physical Exam Vital Signs Last Vital Signs Temp 36.9 C 02/19/19 14:50 Pulse 73 02/19/19 14:50 Resp 20 02/19/19 14:50 BP 188/73 H 02/19/19 14:50 Pulse Ox 98 09/23/19 14:50 ENMT Mouth: + dentures (upper) Thyromental Distance: > or= 3.5 Finger Breadths Mallampati Class: II Neck normal visual inspection Respiratory normal respiratory effort Auscultation: lungs clear to auscultation bilaterally Cardiovascular Rate/Rhythm: regular rate and regular rhythm Psychiatric Orientation: alert Testing Laboratory Results 02/19/19 05:40 02/19/19 05:40 PT 13.1 Seconds (9.0-12.0) H 02/19/19 05:40 INR 1.3 (0.9-1.1) H 02/19/19 05:40 APTT 23.3 Seconds (21.0-31.0) 02/19/19 05:40 Urine Color Yellow 02/17/19 15:40 Urine Appearance Clear (Clear) 02/17/19 15:40 Urine pH 5.0 (4.5-7.5) 02/17/19 15:40 Ur Specific [place] 1.024 (1.000-1.030) 02/17/19 15:40 Urine Protein Negative (Negative) 02/17/19 15:40 Urine Glucose (UA) Negative (Negative) 02/17/19 15:40 Urine Ketones Negative (Negative) 02/17/19 15:40 Urine Nitrite Negative (Negative) 02/17/19 15:40 Ur Leukocyte Esterase Negative (Negative) 02/17/19 15:40 Urine WBC (Auto) 1-5 /hpf (0-5) 02/17/19 06:55 Urine RBC (Auto) 0-4 /hpf (0-4) 02/17/19 06:55 U Hyaline Cast (Auto) 1-5 /lpf (0-5) 02/17/19 06:55 U Epithel Cells (Auto) 5-10 /lpf (0-5) H 02/17/19 06:55 Urine Bacteria (Auto) Negative (Negative) 02/17/19 06:55 Blood Type A Negative 02/16/19 14:27 Antibody Screen NEGATIVE 02/16/19 14:27 02/17/19 15:40 Urine Culture - Final Urine,Straight Cath No growth - less than 1,000 colonies/mL. 02/17/19 15:40 Fungal Smear - Final Urine,Random Fungal Culture - Preliminary No yeast or fungus isolated - Report 1, Additional Report to Follow.
[2019-02-19] MEDS ORDERED: SODIUM CHLORIDE 0.9% 1000ML 1,000 ML IV SCH (15:15)
--- NOTE | 2019-02-19 15:24 | GI REPORT ---
Patient Name: Lazarus Quintero Procedure Date: 02/19/2019 3:07 PM Date of : 1950 Admit Type: Inpatient Age: 68 Gender: Male Attending MD: Keith Covarrubias MD Procedure: Upper GI endoscopy Providers: Keith Covarrubias MD Referring MD: Abel Manning Indications: Melena Medicines: Propofol total dose 180 mg IV, Lidocaine 80 mg IV Complications: No immediate complications. Estimated Blood Loss: Estimated blood loss: none. Procedure: Pre-Anesthesia Assessment: - Prior to the procedure, a History and Physical was performed, and patient medications, allergies and sensitivities were reviewed. The patient's tolerance of previous anesthesia was reviewed. - The risks and benefits of the procedure and the sedation options and risks were discussed with the patient. All questions were answered and informed consent was obtained. After obtaining informed consent, the endoscope was passed under direct vision. Throughout the procedure, the patient's blood pressure, pulse, and oxygen saturations were monitored continuously. The scope was introduced through the mouth, and advanced to the second part of duodenum. The upper GI endoscopy was accomplished without difficulty. The patient tolerated the procedure well. Findings: The Z-line was regular and was found 39 cm from the incisors. No varices. The entire examined stomach was normal. The examined duodenum was normal. Impression: - Z-line regular, 39 cm from the incisors. - Normal stomach. - Normal examined duodenum. - No specimens collected. Recommendation: - [facility] for [facility] care. Keith Covarrubias M.D. Keith Covarrubias MD 02/19/2019 3:24:16 PM This report has been signed electronically. Note Initiated On: 02/19/2019 3:07 PM Number of Addenda: 0 I attest to the content of the Intraoperative Record and orders documented therein, exceptions below {[id number]}
[2019-02-19] MEDS ORDERED: LIDOCAINE HCL 2% 2 ML VIAL/AMP(20MG/ML) INFIL ONE (15:29)
[2019-02-19] MEDS ORDERED: PROPOFOL IV EMULSION 10 MG/ML 20 ML VIAL IV ONE (15:29)
--- NOTE | 2019-02-19 15:33 | Anesthesiology Progress Note ---
Date of Service February 19, 2019 Anesthesia Post Procedure Vital Signs Vital Signs: Temp Pulse Pulse Resp BP BP Pulse Ox 02/19/19 14:50 36.9 C 73 20 188/73 H 98 02/19/19 07:10 36.9 C 71 16 118/47 L 94 02/19/19 03:23 37.0 C 83 18 129/60 93 02/19/19 00:00 65 02/18/19 23:26 36.7 C 87 19 114/55 L 96 02/18/19 19:43 37.0 C 74 20 164/73 H 95 02/18/19 15:50 36.9 C 71 24 158/74 H 96 Transfer of Care Handoff Completed per policy Notes Mental Status: alert / awake / arousable Patient Amnestic to Procedure: Yes Nausea / Vomiting: adequately controlled Pain: adequately controlled Airway Patency, RR, SpO2: stable & adequate BP & HR: stable & adequate Hydration State: stable & adequate Anesthetic Complications: no major complications apparent
--- NOTE | 2019-02-19 15:40 | Progress Note ---
DATE: 02/19/2019 The patient presented to the hospital with nausea, vomiting, and what appeared to be melena. The patient has known history of cirrhosis and underwent an EGD today in the endoscopy unit. His esophagus showed no esophageal varices. Z-line was at 39 cm. There were no esophageal lesions. Stomach and duodenum were also normal. IMPRESSION: The patient had a normal EGD. I plan on advancing his diet. He can be followed as an outpatient.
[2019-02-19 17:31] LABS: Hematocrit (blood only) 22.3 % (42-52); Hemoglobin 7.6 g/dL (14.0-18.0)
--- NOTE | 2019-02-19 19:52 | Hospitalist Progress Note ---
Date of Service February 19, 2019 Assessment & Plan (1) Acute blood loss anemia: Melena stools at presentation. s/p 3 units PRBCs. s/p EGD today - normal, no source of bleeding. Outpatient capsule endoscopy? Defer to GI. Appreciate GI assistance. Repeat h/h this evening stable. Repeat CBC in am. (2) GI bleed: Suspected UGI bleed given melena but EGD today negative; see above in "acute blood loss anemia." Stopped ASA and pletal. H/H stable today. Will need Fe supplementation. Outpt GI f/u will be needed. (3) Elevated troponin: Secondary to myocardial demand-ischemia in setting of GI bleeding. no ACS. (4) Liver cirrhosis: Secondary to alcohol and h/o hep C. Needs 100% abstinence from alcohol. [place] on such. Compensated at this time. (5) Confusion: By report - resolved. Etiology? (6) Drug-induced pancytopenia: Probably multifactorial. Ongoing alcohol use will cause bone marrow suppression. Liver cirrhosis itself will cause pancytopenia. Check B12/folate. TSH noted to be normal. (7) Murmur: Need to look at outpatient records for last echo. sounds like or MR. (8) Prediabetes: controlled a1c <6% (9) Alcohol abuse: no signs/symptoms of withdrawal thiamine x 1 month check ferritin, b12, folate am (10) Essential (primary) hypertension: holding BP meds in setting of GI bleeding (11) DVT prophylaxis: SCDs chemical means contraindicated home tomorrow if H/H stable Subjective saw patient twice today. first was during AM rounds. he was walking around room, waiting patiently for EGD. he was feeling good - no dizziness, abd pain, further melena stools, nausea. tele wnl overnight. 2nd visit was post-EGD. again resting comfortably. tolerated his meal w/o difficulty. Review of Systems Constitutional: no fever Respiratory: no dyspnea Cardiovascular: no chest pain Gastrointestinal: no abdominal pain, no nausea, no vomiting, no blood in stools and no melena Physical Exam Constitutional: no acute distress and no altered mental status ENMT: external ear and nose normal, oropharynx normal Respiratory: normal respiratory effort, lungs clear to auscultation Cardiovascular: Rate/Rhythm: regular rate and regular rhythm Heart Sounds: normal S1, normal S2 and + murmur (2-3/6 RUSB, nearly holosystolic) Vessels: posterior tibial pulses present and dorsalis pedis pulses present; no JVD E xtremities: no edema Gastrointestinal (Abdomen): normal bowel sounds, soft, nontender, no hepatosplenomegaly Skin: + pallor Psychiatric: A+Ox3, euthymic affect Results & Data Vital Signs (Past 12 Hours) Vital Signs Temp Pulse Resp BP BP Pulse Ox 02/19/19 19:19 36.9 C 84 18 156/65 H 95 02/19/19 15:58 67 18 141/67 H 96 02/19/19 15:45 66 18 160/57 H 95 02/19/19 15:28 70 16 113/41 L 95 02/19/19 14:50 36.9 C 73 20 188/73 H 98 Laboratory Results Laboratory Results - last 24 hr 02/19/19 02/19/19 02/19/19 05:40 05:40 05:40 WBC 4.19 L RBC 2.25 L Hgb 7.2 L Hct 21.2 L MCV 94.2 MCH 32.0 MCHC 34.0 RDW Std Deviation 59.7 H RDW Coeff of Coleman 17.5 H Plt Count 56 L MPV 10.7 H PT 13.1 H INR 1.3 H APTT 23.3 PTT Ratio 0.9 Sodium 142 Potassium 3.7 Chloride 111 H Carbon Dioxide 23 Anion Gap 8.0 BUN 16 Creatinine 0.88 Est Cr Clr Drug Dosing 81.2 Est GFR ( Amer) 101.6 Est GFR (Non-Af Amer) 87.6 BUN/Creatinine Ratio 17.6 Glucose 95 Calcium 7.3 L Total Bilirubin 1.0 AST 36 ALT 20 Alkaline Phosphatase 60 Total Protein 4.8 L Albumin 2.4 L Globulin 2.4 L Albumin/Globulin Ratio 1.0 02/19/19 17:18 WBC RBC Hgb 7.6 L Hct 22.3 L MCV MCH MCHC RDW Std Deviation RDW Coeff of Coleman Plt Count MPV PT INR APTT PTT Ratio Sodium Potassium Chloride Carbon Dioxide Anion Gap BUN Creatinine Est Cr Clr Drug Dosing Est GFR ( Amer) Est GFR (Non-Af Amer) BUN/Creatinine Ratio Glucose Calcium Total Bilirubin AST ALT Alkaline Phosphatase Total Protein Albumin Globulin Albumin/Globulin Ratio PG Care Time/CCT Total # of Minutes Spent Total Time Spent with Patient: Total time spent is greater than 50% in coordination of care (as documented) at patient's floor/unit and/or counseling patient: (1) GI bleed GI bleed type/associated pathology: melena Qualified Code(s): K92.1 - Melena (2) Liver cirrhosis Hepatic cirrhosis type: alcoholic cirrhosis Ascites presence: without ascites Qualified Code(s): K70.30 - Alcoholic cirrhosis of liver without ascites
[2019-02-20 06:12] LABS: Hematocrit (blood only) 21.3 % (42-52); Hemoglobin 7.5 g/dL (14.0-18.0); Mean Corpuscular Hemoglobin 32.5 pg (25-34); Mean Corpuscular Hgb Conc 35.2 g/dL (32-36); Mean Corpuscular Volume 92.2 fL (80-100); RDW Coefficient of Variation 16.9 % (11.5-14.5); RDW Standard Deviation 56.5 fL (36.4-46.3); Red Blood Count 2.31 M/uL (4.7-6.1); White Blood Count 4.23 K/uL (4.8-10.8)
[2019-02-20 06:17] LABS: Mean Platelet Volume 9.9 fL (7.4-10.4); Platelet Count 61 K/uL (130-400)
[2019-02-20 06:55] LABS: BUN Creatinine Ratio 15.7 (10-20); Calcium 7.6 mg/dl (8.5-10.1); Creatinine Clr Calc Pharmacy 90.3 ml/min; Est GFR (African American) 106.2; Est GFR (Non-African American) 91.6; Potassium 3.8 mmol/L (3.5-5.1)
[2019-02-20 06:59] LABS: Ferritin 21.2 ng/ml (8-388)
[2019-02-20 07:14] LABS: Folate (Folic Acid) 8.63 ng/ml (>5.38); Vitamin B12 > 2000 pg/ml (211-911)
[2019-02-20] MEDS: THIAMINE HCL 100 MG TAB PO SCH (07:49)
[2019-02-20] MEDS: ATORVASTATIN 20 MG TAB PO SCH (07:49)
[2019-02-20] MEDS ORDERED: FERROUS SULFATE 325 MG TAB PO SCH (09:00)
--- NOTE | 2019-02-20 10:44 | Discharge Summary ---
Date of Service date of admission - February 16, 2019 date of discharge -February 20, 2019 Admission HPI Per Admitting Provider 68 year-old man with past medical history of essential hypertension, tobacco and alcohol abuse, dyslipidemia and obesity presented to the hospital with fatigue, progressive shortness of breath that started with dyspnea on exertion then then progressed to dyspnea at rest, generalized weakness, and palpitations. In ED patient had blood work that showed hemoglobin of 5.9. Patient stated that he has been having black stools for the last few days. 3 months ago patient had an EGD that was within normal limits and also had a colonoscopy that showed some diverticulosis but there was nothing significant. Patient continued to drink alcohol until 2 days ago also he is currently active smoker. Patient reported that he started having significant palpitations in the ED his troponin was found to be Elevated at 0.125 but he denies any chest pain. Principal Diagnosis severe iron deficiency anemia 2nd to GI blood loss - etiology uncertain Discharge Exam Constitutional no acute distress and no altered mental status ENMT external ear and nose normal, oropharynx normal Respiratory normal respiratory effort, lungs clear to auscultation Cardiovascular Rate/Rhythm: regular rate and regular rhythm Heart Sounds: normal S1, normal S2 and + murmur (2-3/6 RUSB, nearly holosy stolic) Vessels: posterior tibial pulses present and dorsalis pedis pulses present; no JVD Extremities: no edema Gastrointestinal (Abdomen) normal bowel sounds, soft, nontender, no hepatosplenomegaly Skin + pallor Psychiatric A+Ox3, euthymic affect Discharge Data Allergies Allergy/AdvReac Type Severity Reaction Status Date / Time No Known Allergies Allergy Verified 02/19/19 14:54 Consultations Gastroenterology - [facility] (Dr Keith Covarrubias) Procedures Performed Operation Date: 02/19/19 Esophagogastroduodenoscopy - Keith Covarrubias MD Normal esophagus, stomach, and first portion of duodenum. PRBCs x [address] abd pelvis - IMPRESSION: 1. Dominant 11 mm nonobstructing left renal pelvic calculus as on prior exam with minimal reactive changes of the urothelium. No hydronephrosis. Additional nonobstructing left nephrolithiasis. 2. Cirrhosis with portal hypertension evidenced by varices and splenomegaly. Few paraesophageal varices. 3. Diverticulosis coli. No diverticulitis. CT head/brain - no acute findings. Hospital Course (1) Acute blood loss anemia: Melena stools at presentation. s/p 3 units PRBCs. s/p EGD by Dr Keith Covarrubias - normal, no source of bleeding. Mr Quintero will follow-up with Dr Covarrubias and there will likely be consideration of capsule endoscopy. Discharge hemoglobin was 7.5. His Hb was stable at this level for 48 hours prior to discharge. He was asked to take ferrous sulfate supplementation twice daily for 3 months if not longer. Of note - he has been seen in the [facility] and IV iron has been recommended in the past. (2) GI bleed: Suspected UGI bleed given melena but EGD was negative; see above in "acute blood loss anemia." Stopped ASA and pletal. H/H stable for 2 days prior to discharge. Will need Fe supplementation. Outpatient GI f/u will be needed with Dr Keith Covarrubias. (3) Elevated troponin: Secondary to myocardial demand-ischemia in setting of GI bleeding. no ACS or ischemic symptoms. (4) Liver cirrhosis: Secondary to alcohol and h/o hep C. Needs 100% abstinence from alcohol. Counseled on such. Compensated at this time. In the past there was some element of hemochromatosis and indeed he had several rounds of phlebotomy. However, at this time, he is iron deficient with ferritin of 21. Again EGD did NOT show esophageal varices. (5) Confusion: By report at time of admission - resolved. Etiology uncertain. CT head negative. Other labs wnl. (6) Drug-induced pancytopenia: Probably multifactorial. Ongoing alcohol use will cause bone marrow suppression. Liver cirrhosis itself will cause pancytopenia. B12/folate and TSH noted to be normal. CBC at time of hospital follow-up advised to ensure stability. (7) Murmur: h/o aortic sclerosis and Follows with cardiology routinely for this. (8) Prediabetes: controlled a1c <6% (9) Alcohol abuse: no signs/symptoms of withdrawal during the stay. thiamine x 1 month post-discharge. advised to ABSTAIN 100% from alcohol in light of cirrhosis. (10) Essential (primary) hypertension: BPs were controlled in the absence of using his losartan-HCTZ. He was continued on toprol xl. At discharge he was asked to continue holding his losartan-HCTZ. Total Time Total Time Spent Total Time Spent (In Minutes): 35 Total Time Includes: Examination of the Patient, Discharge Planning and Medication Reconciliation Discharge Plan Discharge Items Patient Disposition: Home - Self-Care Reason For Visit: Concern for blood in stools Discharge Diagnosis: 1. severe anemia likely due to gastrointestinal blood loss - exact cause uncertain 2. transfusion of 3 units of blood 3. normal upper endoscopy - further testing as an outpatient recommended Condition on Discharge: Good Goals: 1. improve the blood counts 2. find out cause of gastrointestinal bleeding Activity: As commented below Activity Comment: no strenous activities for about 1 week Lifting: Gradually increase as tolerated Sexual Activity: Wait until after follow-up appointment Exercise/Sports: Wait until after follow-up appointment Driving/Machine Use: Resume 1 day after discharge Non-emergency contact: Primary Care Provider and Card Feeder Call non-emergency contact if: you have any medication questions, your symptoms worsen and you have a fever Follow-up/Referrals: Keith Covarrubias [Physician] - 05/02/19 11:00 am (Please, follow up with Dr. Covarrubias on TuesdayMay 02 at 11:00 am. *This office is located at [address] [place] [address] - next to [facility]. If you need to change this appointment, call his office at [phone].) Tom Collins MD [Primary Care Provider] - 02/27/19 10:50 am (Please, follow up at Dr. Collins's office with his associate, Dr. Remigio Evans, on TuesdayFebruary 27 at 10:50 am. *If you need to change this appointment, call the office at [phone].) Diet: Heart Healthy [facility] Attending Provider Instructions: You were admitted due to weakness, shortness of breath, heart racing/palpitations, and seeing dark-colored stool. You were severely anemic at time of admission. The anemia was the likely cause of your symptoms. Your blood counts were less than 6. 3 units of blood were given. Your hemoglobin (red cell count) on day of discharge is 7.5. The GI physicians saw you in consult and they performed an upper endoscopy ("EGD") to look for a source of your GI bleeding. None was found on the EGD however. The GI physicians plan additional testing as an outpatient. Recommendations - 1. stop your cilastazol 2. do not take any aspirin, motrin, ibuprofen, naprosyn, or aspirin-containing products at this time 3. start ferrous sulfate (iron tablets) 325mg twice a day for 3 months 4. start thiamine 200mg twice a day for 1 month 5. STOP your losartain-hydrochlorothiazide blood pressure medication for now You may see old, dark blood in your stool for another day or two. Do not be alarmed by this as that represents old blood from several days ago. The iron may make you constipated. It may also darken your stools. Follow-up - see separate section Return to [facility] if - * you have bright red bleeding from your rectum * you have copious amounts of dark, tarry, or black stools * you have significant dizziness or lightheadedness * you have chest pain or shortness of breath * you develop severe weakness * abdominal pain occurs * any other concerns Pending Studies at Discharge: No Stand-Alone Forms: My [facility] Medications and DC Order Prescriptions: New thiamine HCl (vitamin B1) [Vitamin B-1] 100 mg Tablet 200 mg PO BID Qty: 120 RF: 0 ferrous sulfate 325 mg (65 mg iron) Tablet,Delayed Release (Dr/Ec) 325 mg PO BID Qty: 60 RF: 2 Continued metformin 500 mg tablet 500 mg PO BID Qty: 180 RF: 1 multivitamin Tablet 1 tab PO QAM RF: 0 atorvastatin 20 mg Tablet 20 mg PO HS RF: 0 cyanocobalamin (vitamin B-12) [Vitamin B-12] 1,000 mcg Tablet 1,000 mcg PO QAM RF: 0 furosemide 20 mg Tablet 20 mg PO DAILY PRN (Reason: Edema) RF: 0 cholecalciferol (vitamin D3) [Vitamin D3] 1,000 unit Tablet 1,000 unit PO QAM RF: 0 [place]-3 350 mg-235 mg- 90 mg-597 mg Capsule,Delayed Release(Dr/Ec) 1 cap PO QAM RF: 0 metoprolol succinate [Toprol XL] 25 mg tablet extended release 24 hr 25 mg PO BID RF: 0 Discontinued cilostazol 100 mg Tablet 100 mg PO BID RF: 0 losartan-hydrochlorothiazide 50-12.5 mg Tablet 1 tab PO DAILY RF: 0 Discharge Orders: Discharge Order (Routine); Ordered 02/20/19 Ordered By: Abel Manning Admission Data Admit Date/Time: 02/16/19 17:58 Attending Provider: Abel Manning Admit Provider: Myrna Armando Primary Care Provider: Tom Collins Other Providers: Keith Covarrubias ; Myrna Armando Other Interventions: Discharge Summary Assessment (RN) Last Done: 02/20/19 10:44 DC Date/Time DO NOT enter until pt leaves facility: 02/20/19 12:45
== END 2019-02-20 12:45 | disposition home or self-care (01) | DRG 377 ==
LOC: ED 14:00 → SUATTDRO 17:58 → 2E 17:58

== ENCOUNTER 2024-12-18 20:51 | Observation (INO) ==
[2024-12-18] MEDS: SODIUM CHLORIDE 0.9% 1,000 ML IV SCH ×2 (21:20→21:22)
[2024-12-18 21:34] LABS: Base Excess VBG -2.4 mEq/L; HCO3 VBG 22 mmol/L; Oxygen Saturation VBG 96.2 %; PCO2 VBG 34 mmHg (38-50); PO2 VBG 71 mmHg; pH VBG 7.41 (7.36-7.41)
[2024-12-18 21:35] LABS: Alanine Aminotransferase 43.0 U/L (7-52); Alkaline Phosphatase 102.0 U/L (34-104); Anion Gap 9.0 (3-11); Bilirubin,Total 1.4 mg/dl (0.2-1.0); Blood Urea Nitrogen 15.0 mg/dl (6-23); Calcium 9.0 mg/dl (8.6-10.3); Carbon Dioxide 22.0 mmol/L (21-32); Chloride 109.0 mmol/L (98-107); Creatinine Clr Calc Pharmacy 51.9 ml/min; Glucose 100.0 mg/dl (70-99(Fasting)); Magnesium 1.6 mg/dl (1.7-2.4); Potassium 3.9 mmol/L (3.5-5.1); Sodium 140.0 mmol/L (136-145); Total Protein 6.4 gm/dl (6.0-8.3)
[2024-12-18 21:54] LABS: INR 1.3 (0.9-1.1); Prothrombin Time 14.1 Seconds (9.0-12.0)
[2024-12-18] MEDS: MAGNESIUM SULFATE / D5W 1 GM/100 ML BAG IV STA (22:07)
[2024-12-18 22:21] LABS: Hematocrit (blood only) 33.3 % (42.0-52.0); Hemoglobin 12.2 g/dl (14.0-18.0); Mean Corpuscular Hemoglobin 32.4 pg (25.0-34.0); Mean Corpuscular Volume 88.6 fL (80.0-100.0); Platelet Count 81 K/uL (130-400); RDW Standard Deviation 48.4 fL (36.4-46.3); Red Blood Count 3.76 M/uL (4.70-6.10); White Blood Count 5.30 K/ul (4.8-10.8)
--- NOTE | 2024-12-18 23:06 | CT Scan Report ---
Exam(s): CT HEAD Without Contrast EXAM: CT Head Without Intravenous Contrast CLINICAL HISTORY: Reason for exam: trauma. TECHNIQUE: Axial computed tomography images of the head/brain without intravenous contrast. CTDI is 23.22 mGy and DLP is 484.89 mGy-cm. Automated exposure control was utilized for the study. A dose lowering technique was utilized adhering to the principles of ALARA. COMPARISON: Prior head CT from October 03, 2020. FINDINGS: This study is suboptimal secondary to motion artifact. Brain: Unremarkable. No hemorrhage. Moderate nonspecific white matter changes. No edema. Ventricles: Advanced ventriculomegaly. Bones/joints: Unremarkable. No acute fracture. Soft tissues: Unremarkable. Sinuses: Unremarkable as visualized. No acute sinusitis. Mastoid air cells: Unremarkable as visualized. No mastoid effusion. IMPRESSION: No evidence of acute intracranial pathology. Electronically signed by: Samantha Nelson MD 12/18/24 23:05 PM
--- NOTE | 2024-12-18 23:12 | CT Scan Report ---
Exam(s): CT C SPINE EXAM: CT Cervical Spine Without Intravenous Contrast CLINICAL HISTORY: Reason for exam: trauma. TECHNIQUE: Axial computed tomography images of the cervical spine without intravenous contrast. Automated exposure control was utilized for the study. A dose lowering technique was utilized adhering to the principles of ALARA. COMPARISON: No relevant prior studies available. FINDINGS: Vertebrae: Unremarkable. No acute fracture. Discs/spinal canal/neural foramina: No acute findings. No spinal canal stenosis. Soft tissues: Left pleural effusion. IMPRESSION: No evidence of acute cervical spine pathology. Electronically signed by: Samantha Nelson MD 12/18/24 23:11 PM
--- NOTE | 2024-12-18 23:25 | Emergency Department Note ---
Impression & Plan AMS (altered mental status), Hyperammonemia, Adverse drug effect, Hypomagnesemia ED Provider Note ED Provider Note NAME: ANDIE ANDERSON AGE:74 SEX: Male : 1950 ARRIVES VIA: EMS INFORMANT: Patient ED PROVIDER(s): Shari Armenta DO CHIEF COMPLAINT: found on ground, ams HPI: This is a 74-year-old male presents to the emergency department via EMS after and neighbor found him on the ground at their residence. states they found him at around 430, she had come home around 4 and he was upright walking around her house although complained that he did not feel well. She states when she got home from running an hour and half an hour later they found him on the floor. He denied falling but has had progressive confusion over the last couple weeks. states last time he was this confused his ammonia level was elevated. EMS reported the patient does have advanced liver cancer. Once presented to bedside she states he opted to not have any treatment. She states his condition has overall been deteriorating and she has been trying to make arrangements to place him in a facility. She denies any other recent changes including any complaints of the patient had, no URI symptoms, no fevers, no vomiting or diarrhea. PAST MEDICAL HISTORY:See Below PAST SURGICAL HISTORY:See Below FAMILY HISTORY:See Below SOCIAL HISTORY:See Below HOME MEDICATIONS:See Below ALLERGIES:See Below VITALS:See Below PHYSICAL EXAMINATION: GENERAL: alert, well appearing, well nourished, no distress, non-toxic HEAD: nc/at EYE EXAM: normal conjunctiva, PERRL and EOM's grossly intact OROPHARYNX: no exudate, no erythema, lips, buccal mucosa, and tongue normal and mucous membranes are dry NECK: supple, no nuchal rigidity, no adenopathy, non-tender LUNGS: Clear to auscultation. Normal chest wall mechanics, no w/r/r HEART: no murmurs, S1 normal and S2 normal ABDOMEN: abdomen soft, non-tender, normo-active bowel sounds, no masses, no rebound or guarding. SKIN: no rashes, petechiae, orbruising UPPER EXTREMITIES: upper extremities are grossly normal. FROM, nml pulses b/l. LOWER EXTREMITIES: No pitting edema. FROM, nml pulses b/l. NEURO EXAM: Pleasantly confused, cranial nerves II-XII grossly intact, normal speech, no facial droop,nogross weakness of arms, no gross weakness of legs. Gross sensation intact. No ataxia. Vital Signs: reviewed and remarkable Differential Diagnosis: CVA/TIA, ICH, PRIMO, PNA, UTI, medication ADR, bacteremia/sepsis, occult trauma, hypoxia, hypercapnia, electrolyte abnormality, as well as others were considered MEDICAL DECISION MAKING: This is a 78-year-old male brought in by EMS due to 's concern for altered mental status on him and found on the floor. Patient denies any concern with injury and does not remember falling. He states he feels fine. He was afebrile and VS stable. Labs drawn and sent, IV established, EKG and CXR performed and interpreted at bedside, and patient placed on telemetry. patient sent for CT head/cspine which were reassuring. Patient started on gentle IV fluid hydration. Patient's labs did reveal an elevated ammonia level, mildly abnormal LFT's, and elevated troponin. Patient's anemia and thrombocytopenia stable compared to prior. Patient denied any chest pain or shortness of breath. Abdomen soft and nontender. denied any recent vomiting or change in stools. She states episode of similar to prior admission for altered mental status when his ammonia was elevated. I have a low suspicion for occult traumatic injury based on exam and imaging findings. Patient was given IV magnesium repletion additionally. Patient had no new or evolving symptoms and was otherwise hemodynamically stable. is working towards placement as she states he continues to decline and she is unable to care for him at home full- time. Case discussed with the hospitalist team for additional evaluation and management. Consultation(s): 2350: Discussed with Dr. Freedman, [facility] hospitalist team, for additional evaluation and mgmt. ER Treatment Provided: See below Diagnostics Interpreted By Me: -ECG: Normal sinus at 88, first-degree AV block, leftward axis, right bundle branch block, nonspecific ST/T wave changes -Cardiac Monitoring: An order was placed for continuous cardiac monitoring. The monitor shows a rate of 80 with normal sinus rhythm. -Laboratory studies: As stated above and show below. -Imaging studies: ct head: no ich Triage Nursing Note Reviewed Prior/Outside Records Reviewed - prior DC summary reviewed Past Med/Surg History Problem List Bilateral carotid bruits Mitral regurgitation Aortic valve stenosis Severe left ventricular hypertrophy Hepatic encephalopathy Hypomagnesemia (Acute) Adverse drug effect (Acute) Hyperammonemia (Acute) AMS (altered mental status) (Acute) Thrombocytopenia Thrombocytopathia Encounter for pre-operative examination PAD (peripheral artery disease) Hypertrophic cardiomyopathy Cirrhosis (Chronic) INR 1.3 Cardiac murmur (Chronic) mild , hypertrophy with GINNY mitral valve - peak gradient 30mmHg Hyperlipidemia (Chronic) Hypertension (Chronic) Hearing deficit (Chronic) Prediabetes (Chronic) metformin daily Hepatitis C (Chronic) tx and no longer has Medical History History of liver cancer 01/2021--per had radiation, embolization @ [facility] Family History Other No family history of adverse response to anesthesia Social History Smoking Status: Current every day smoker Tobacco Type: Cigarettes Cigarettes Per Day: 3 a day; Second Hand Exposure: No; Do You Dip or Chew Tobacco: No; Hx Alcohol Use: No Hx Substance Use: Yes Last Used Substance: Hours (ago) Preferred Language: Mongolian Communication Ability: Effective [employer]ace [employer] Equipment Operator Required: No Beliefs That Will Affect Care: None Current Living Situation: Spouse Feels Safe at Home: Yes Assistive Devices: None Allergies Allergies Allergy/AdvReac Type Severity Reaction Status Date / Time No Known Allergies Allergy Verified 12/18/24 22:42 Home Meds Home Medications Medication Instructions Recorded Confirmed ferrous sulfate 325 mg (65 mg 325 mg PO QAM 10/14/20 12/18/24 iron) tablet,delayed release furosemide 20 mg tablet 10 mg PO QAM Edema 10/14/20 12/18/24 amlodipine 5 mg tablet 5 mg PO HS 06/24/22 12/18/24 metformin 500 mg tablet 500 mg PO BID 06/24/22 12/18/24 cholecalciferol (vitamin D3) 50 50 mcg PO QPM 12/18/24 12/18/24 mcg (2,000 unit) capsule (Vitamin D3) cyanocobalamin (vitamin B-12) 1,000 mcg PO QAM 12/18/24 12/18/24 1,000 mcg tablet (Vitamin B-12) losartan 50 mg-hydrochlorothiazide 1 tab PO QAM 12/18/24 12/18/24 12.5 mg tablet izdidjbq-bml-agmbz acid 500 1 tab PO QAM 12/18/24 12/18/24 mcg-lycopene 300 mcg-lutein 250 mcg tablet ([employer]) omega 9-ici-pua-fish oil 1,000 mg 1 cap PO QAM 12/18/24 12/18/24 (120 mg-180 mg) capsule (Fish Oil) rifaximin 550 mg tablet (Xifaxan) 550 mg PO BID 12/18/24 12/18/24 rosuvastatin 40 mg tablet (Crestor) 40 mg PO QAM 12/18/24 12/18/24 thiamine HCl (vitamin B1) 100 mg 200 mg PO QAM 12/18/24 12/18/24 tablet (Vitamin B-1) Previous Rx's Medication Instructions Recorded metoprolol succinate 50 mg 50 mg PO BID #60 tabs 04/12/19 tablet,extended release 24 hr lactulose 10 gram/15 mL oral 30 g (45 mL) PO BID #2,700 mL 12/19/24 solution Results & Data (ED) Vital Signs Vital Signs - 24 hr 12/18/24 22:30 12/18/24 22:39 12/18/24 22:42 Pulse Rate 79 79 Pulse Rate from SpO2 Sensor 79 79 Respiratory Rate 20 22 Blood Pressure 110/60 Blood Pressure Mean 69 Pulse Oximetry 93 93 Oxygen Delivery Method 12/18/24 22:57 12/18/24 23:00 12/18/24 23:00 Pulse Rate 75 76 Pulse Rate from SpO2 Sensor 76 76 Respiratory Rate 22 29 H Blood Pressure 105/57 L Blood Pressure Mean 70 Pulse Oximetry 94 93 Oxygen Delivery Method 12/18/24 23:30 12/18/24 23:30 12/18/24 23:45 Pulse Rate 71 72 Pulse Rate from SpO2 Sensor 70 71 Respiratory Rate 16 20 Blood Pressure 93/52 L Blood Pressure Mean 76 Pulse Oximetry 93 93 Oxygen Delivery Method Room Air 12/18/24 23:51 12/19/24 00:00 12/19/24 00:24 Pulse Rate 72 72 Pulse Rate from SpO2 Sensor 72 71 Respiratory Rate 24 15 Blood Pressure 111/56 L Blood Pressure Mean 70 Pulse Oximetry 94 95 Oxygen Delivery Method Room Air 12/19/24 00:39 12/19/24 00:42 12/19/24 00:45 Pulse Rate 79 76 72 Pulse Rate from SpO2 Sensor Respiratory Rate 16 23 20 Blood Pressure Blood Pressure Mean Pulse Oximetry Oxygen Delivery Method 12/19/24 01:00 12/19/24 01:09 12/19/24 01:10 Pulse Rate 83 79 Pulse Rate from SpO2 Sensor Respiratory Rate 24 Blood Pressure 103/62 Blood Pressure Mean 84 Pulse Oximetry 93 Oxygen Delivery Method Room Air 12/19/24 01:21 12/19/24 01:24 12/19/24 01:30 Pulse Rate 71 73 Pulse Rate from SpO2 Sensor 71 73 Respiratory Rate 20 20 Blood Pressure 109/60 Blood Pressure Mean 76 Pulse Oximetry 93 94 Oxygen Delivery Method 12/19/24 01:36 12/19/24 01:51 Pulse Rate 72 69 Pulse Rate from SpO2 Sensor 79 69 Respiratory Rate 18 19 Blood Pressure Blood Pressure Mean Pulse Oximetry 94 93 Oxygen Delivery Method Laboratory Data 12/19/24 05:25 12/19/24 05:25 Lab Results 12/18/24 12/18/24 12/18/24 Range/Units 20:32 21:07 21:22 WBC 5.30 (4.8-10.8) K/ul RBC 3.76 L (4.70-6.10) M/uL Hgb 12.2 L (14.0-18.0) g/dl Hct 33.3 L (42.0-52.0) % MCV 88.6 (80.0-100.0) fL MCH 32.4 (25.0-34.0) pg MCHC 36.6 H (32.0-36.0) g/dL RDW Std Deviation 48.4 H (36.4-46.3) fL RDW Coeff of Coleman 15.3 H (11.5-14.5) % Plt Count 81 L (130-400) K/uL MPV 11.0 (9.4-12.4) fL Immature Gran % (Auto) 0.4 % Neut % (Auto) 72.7 % Lymph % (Auto) 13.4 % [place] % (Auto) 8.5 % Eos % (Auto) 4.2 % Baso % (Auto) 0.8 % Neut # (Auto) 3.86 (1.40-6.50) K/uL Lymph # (Auto) 0.71 L (1.20-3.40) K/uL [place] # (Auto) 0.45 (0.11-0.59) K/uL Eos # (Auto) 0.22 (0.00-0.50) K/uL Baso # (Auto) 0.04 (0.00-0.20) K/uL Immature Gran # (Auto) 0.02 (0.01-0.20) K/uL Polychromasia 1+ PT 14.1 H (9.0-12.0) Seconds INR 1.3 H (0.9-1.1) VBG pH 7.41 (7.36-7.41) VBG pCO2 34 L (38-50) mmHg VBG pO2 71 mmHg VBG HCO3 22 mmol/L VBG O2 Saturation 96.2 % VBG Base Excess -2.4 mEq/L Sodium 140 (136-145) mmol/L Potassium 3.9 (3.5-5.1) mmol/L Chloride 109 H (98-107) mmol/L Carbon Dioxide 22 (21-32) mmol/L Anion Gap 9 (3-11) BUN 15 (6-23) mg/dl Creatinine 1.22 (0.6-1.4) mg/dl Est Cr Clr Drug Dosing 51.9 ml/min eGFR 61.83 BUN/Creatinine Ratio 12.3 (10-20) Glucose 100 H (70-99(Fasting)) mg/dl Lactate (0.4-2.0) mmol/L Calcium 9.0 (8.6-10.3) mg/dl Magnesium 1.6 L (1.7-2.4) mg/dl Total Bilirubin 1.4 H (0.2-1.0) mg/dl Direct Bilirubin 0.3 H (0-0.2) mg/dl AST 62 H (13-39) U/L ALT 43 (7-52) U/L Alkaline Phosphatase 102 (34-104) U/L Ammonia 85.0 H (18-72) umol/L Troponin I High Sens 35.4 H (0-20) pg/ml Total Protein 6.4 (6.0-8.3) gm/dl Albumin 3.3 L (3.4-5.0) gm/dl Procalcitonin 0.07 (0-0.5) ng/ml 12/18/24 12/18/24 Range/Units 21:42 23:02 WBC (4.8-10.8) K/ul RBC (4.70-6.10) M/uL Hgb (14.0-18.0) g/dl Hct (42.0-52.0) % MCV (80.0-100.0) fL MCH (25.0-34.0) pg MCHC (32.0-36.0) g/dL RDW Std Deviation (36.4-46.3) fL RDW Coeff of Coleman (11.5-14.5) % Plt Count (130-400) K/uL MPV (9.4-12.4) fL Immature Gran % (Auto) % Neut % (Auto) % Lymph % (Auto) % [place] % (Auto) % Eos % (Auto) % Baso % (Auto) % Neut # (Auto) (1.40-6.50) K/uL Lymph # (Auto) (1.20-3.40) K/uL [place] # (Auto) (0.11-0.59) K/uL Eos # (Auto) (0.00-0.50) K/uL Baso # (Auto) (0.00-0.20) K/uL Immature Gran # (Auto) (0.01-0.20) K/uL Polychromasia PT (9.0-12.0) Seconds INR (0.9-1.1) VBG pH (7.36-7.41) VBG pCO2 (38-50) mmHg VBG pO2 mmHg VBG HCO3 mmol/L VBG O2 Saturation % VBG Base Excess mEq/L Sodium (136-145) mmol/L Potassium (3.5-5.1) mmol/L Chloride (98-107) mmol/L Carbon Dioxide (21-32) mmol/L Anion Gap (3-11) BUN (6-23) mg/dl Creatinine (0.6-1.4) mg/dl Est Cr Clr Drug Dosing ml/min eGFR BUN/Creatinine Ratio (10-20) Glucose (70-99(Fasting)) mg/dl Lactate 1.0 (0.4-2.0) mmol/L Calcium (8.6-10.3) mg/dl Magnesium (1.7-2.4) mg/dl Total Bilirubin (0.2-1.0) mg/dl Direct Bilirubin (0-0.2) mg/dl AST (13-39) U/L ALT (7-52) U/L Alkaline Phosphatase (34-104) U/L Ammonia (18-72) umol/L Troponin I High Sens 41.0 H (0-20) pg/ml Total Protein (6.0-8.3) gm/dl Albumin (3.4-5.0) gm/dl Procalcitonin (0-0.5) ng/ml Administered Medications Discontinued Medications Cyanocobalamin (Cyanocobalamin (B-12) 500 Mcg Tablet) [facility] [place]: 01/18/25 08:59 Last Admin: 12/19/24 08:59 Dose: 1,000 mcg Documented By: MATHIEU Doxycycline Hyclate (Doxycycline Hyclate 100 Mg Cap) 100 mg PO NOW [facility] Stop: 12/18/24 23:56 Last Admin: 12/19/24 00:24 Dose: 100 mg Documented By: FABIOLA Ferrous Sulfate (Ferrous Sulfate 325 Mg Tab) 325 mg PO [facility] Stop: 01/18/25 08:59 Last Admin: 12/19/24 08:59 Dose: 325 mg Documented By: MATHIEU HCTZ/Losartan Potassium (Losartan/Hctz 50/12.5mg Tab) 1 [facility] [place]: 01/18/25 08:59 Last Admin: 12/19/24 08:59 Dose: 1 tab Documented By: MATHIEU Sodium Chloride (Nss) 1,000 mls @ 999 mls/hr IV .Q1H1M [facility] Stop: 12/18/24 22:15 Last Infusion: 12/18/24 22:07 Dose: Infused Documented By: Admin: 12/18/24 21:20 Dose: 999 mls/hr Documented By: ROSSI Sodium Chloride (Nss) 1,000 mls @ 125 mls/hr IV .Q8H [facility] Stop: 12/21/24 21:14 Last Infusion: 12/19/24 04:19 Dose: Infused Documented By: Admin: 12/18/24 21:22 Dose: 125 mls/hr Documented By: ROSSI Magnesium Sulfate/Dextrose (Magnesium Sulfate / D5w) 1 gm in 100 mls @ 100 mls/hr IV NOW [facility] Stop: 12/18/24 22:55 Last Infusion: 12/18/24 23:43 Dose: Infused Documented By: Admin: 12/18/24 22:07 Dose: 100 mls/hr Documented By: ROSSI Ceftriaxone Sodium (Rocephin) 2,000 mg in 50 mls @ 100 mls/hr IV NOW [facility] Stop: 12/19/24 00:24 Last Infusion: 12/19/24 01:09 Dose: Infused Documented By: Admin: 12/19/24 00:24 Dose: 100 mls/hr Documented By: FABIOLA Sodium Chloride (Nss) 1,000 mls @ 80 mls/hr IV .[id number] [facility] Stop: 12/20/24 04:59 Last Infusion: 12/19/24 11:26 Dose: Infused Documented By: Admin: 12/19/24 04:00 Dose: 80 mls/hr Documented By: YASMANY Doxycycline Hyclate 100 mg/ (Dextrose) 100 mls @ 50 mls/hr IV Q12H [facility] Stop: 12/24/24 08:59 Last Infusion: 12/19/24 11:03 Dose: Infused Documented By: Admin: 12/19/24 09:00 Dose: 50 mls/hr Documented By: MATHIEU Insulin Aspart (Insulin Aspart Per Unit Charge) [address] [facility] Stop: 01/18/25 07:29 Last Admin: 12/19/24 12:08 Dose: 4 units Documented By: MATHIEU Co-signed By: MINISTERIO Admin: 12/19/24 08:04 Dose: Not Given Documented By: MATHIEU Lactulose (Lactulose Syrup 20 Gm/30 Ml Udc) 30 gm PO NOW [facility] Stop: 12/19/24 01:57 Last Admin: 12/19/24 02:18 Dose: 30 gm Documented By: ROSSI Lactulose (Lactulose Syrup 20 Gm/30 Ml Udc) 30 gm PO BID [facility] Stop: 01/18/25 08:59 Last Admin: 12/19/24 08:58 Dose: 30 gm Documented By: MATHIEU Metoprolol Succinate (Metoprolol Succ 50mg Ext Rel Tab) 50 mg PO BID [facility] Stop: 01/18/25 08:59 Last Admin: 12/19/24 08:59 Dose: 50 mg Documented By: MATHIEU Rifaximin (Rifaximin 550 Mg Tablet) 550 mg PO BID [facility] Stop: 01/18/25 08:59 Last Admin: 12/19/24 08:59 Dose: 550 mg Documented By: MATHIEU Rosuvastatin Calcium (Rosuvastatin Calcium 20 Mg Tab) 40 mg PO QAM [facility] Stop: 01/18/25 08:59 Last Admin: 12/19/24 08:59 Dose: 40 mg Documented By: MATHIEU Thiamine HCl (Thiamine Hcl 100 Mg Tab) 200 mg PO QAM [facility] Stop: 01/18/25 08:59 Last Admin: 12/19/24 08:59 Dose: 200 mg Documented By: MATHIEU Imaging Data Radiologist's Impression: Chest X-Ray 12/18/24 21:06 Exam(s): XR CXR 1 VIEW EXAM: XR Chest, 1 View CLINICAL HISTORY: Reason for exam: Sepsis. TECHNIQUE: Frontal view of the chest. COMPARISON: 06/01/2024 FINDINGS: Lungs: Left lower lobe infiltrate and small left pleural effusion. Pleural space: See above. Heart: Unremarkable. No cardiomegaly. Mediastinum: Unremarkable. Normal mediastinal contour. Bones/joints: Unremarkable. No acute fracture. IMPRESSION: Left lower lobe pneumonia with reactive left pleural effusion Electronically signed by: Boby Albarado MD 12/18/24 23:[address] 12/18/24 21:24 Exam(s): CT C SPINE EXAM: CT Cervical Spine Without Intravenous Contrast CLINICAL HISTORY: Reason for exam: trauma. TECHNIQUE: Axial computed tomography images of the cervical spine without intravenous contrast. Automated exposure control was utilized for the study. A dose lowering technique was utilized adhering to the principles of ALARA. COMPARISON: No relevant prior studies available. FINDINGS: Vertebrae: Unremarkable. No acute fracture. Discs/spinal canal/neural foramina: No acute findings. No spinal canal stenosis. Soft tissues: Left pleural effusion. IMPRESSION: No evidence of acute cervical spine pathology. Electronically signed by: Samantha Nelson MD 12/18/24 23:[address] 12/18/24 21:24 Exam(s): CT HEAD Without Contrast EXAM: CT Head Without Intravenous Contrast CLINICAL HISTORY: Reason for exam: trauma. TECHNIQUE: Axial computed tomography images of the head/brain without intravenous contrast. CTDI is 23.22 mGy and DLP is 484.89 mGy-cm. Automated exposure control was utilized for the study. A dose lowering technique was utilized adhering to the principles of ALARA. COMPARISON: Prior head CT from October 03, 2020. FINDINGS: This study is suboptimal secondary to motion artifact. Brain: Unremarkable. No hemorrhage. Moderate nonspecific white matter changes. No edema. Ventricles: Advanced ventriculomegaly. Bones/joints: Unremarkable. No acute fracture. Soft tissues: Unremarkable. Sinuses: Unremarkable as visualized. No acute sinusitis. Mastoid air cells: Unremarkable as visualized. No mastoid effusion. IMPRESSION: No evidence of acute intracranial pathology. Electronically signed by: Samantha Nelson MD 12/18/24 23:05 PM Discharge Plan Visit Data Chief Complaint: Altered Mental Status Stated Complaint: ALTERED MENTAL STATUS ED Provider: Shari Armenta Discharge Problem: AMS (altered mental status), Hyperammonemia, Adverse drug effect, Hypomagnesemia Patient Disposition: Admitted As Inpatient Condition: Fair Discharge Instructions Interventions: ED Discharge Assessment Last Done: 12/19/24 02:53
--- NOTE | 2024-12-18 23:48 | XRay Report ---
Exam(s): XR CXR 1 VIEW EXAM: XR Chest, 1 View CLINICAL HISTORY: Reason for exam: Sepsis. TECHNIQUE: Frontal view of the chest. COMPARISON: 06/01/2024 FINDINGS: Lungs: Left lower lobe infiltrate and small left pleural effusion. Pleural space: See above. Heart: Unremarkable. No cardiomegaly. Mediastinum: Unremarkable. Normal mediastinal contour. Bones/joints: Unremarkable. No acute fracture. IMPRESSION: Left lower lobe pneumonia with reactive left pleural effusion Electronically signed by: Boby Albarado MD 12/18/24 23:47 PM
[2024-12-19 00:03] LABS: Immature Granulocytes # (auto) 0.02 K/uL (0.01-0.20); Immature Granulocytes % (auto) 0.4 %; Polychromasia 1+
[2024-12-19] MEDS: cefTRIAXone SODIUM 2,000 MG/50 ML BAG IV STA (00:24)
[2024-12-19] MEDS: DOXYCYCLINE HYCLATE 100 MG CAP PO STA (00:24)
--- NOTE | 2024-12-19 02:05 | History & Physical Report ---
Date of Service December 19, 2024 Assessment & Plan (1) Hepatic encephalopathy: Plan: 74-year-old male with past med history significant for dyslipidemia, hepatic encephalopathy, peripheral artery disease, hypertension, varicose veins of lower extremity, alcohol liver cirrhosis, iron deficiency anemia, hepatocellular carcinoma was brought in by because of confusion. found him on the floor around 4:30 PM. Around 4:00 PM patient was upright and walking around the house though complained he did not feel good. And when the came back around 4:30 PM she found him on the floor. As per ER patient seems to have confusion for last couple of weeks. thought his ammonia level was very elevated. In the ER he ammonia level came back 85. Patient says he was just laying on the floor and thought that he fell down. Patient currentlyis lina rt and awake and oriented to name and place. Could not tell current dates. Somewhat restless. Somewhat upset that we came late to see him. is not in the room currently. Patient denies any headache. Denies any chest pain. Denies shortness of breath. Denies cough. Denies nausea. Denies abdominal pain. Hemodynamics are okay. Hepatic encephalopathy Ammonia level 85 Continue home Xifaxan Placed on lactulose Follow repeat levels in a.m. Gentle fluids Consult GI in a.m. for further recommendation Possible pneumonia on chest x-ray Empiric Rocephin and Doxy Will follow ct chest. Hepatic liver cirrhosis alcoholic Thrombocytopenia and anemia Platelets 81 Total bilirubin 1.4. AST 62. ALT 43. Alk phos is 102 On Lasix as needed Follow labs Elevated troponin Abnormal EKG Initial troponin 35 repeat is 41 Will follow serial enzymes and echo and repeat EKG Prolonged QTc Avoid QT prolonging drugs Follow repeat EKG Peripheral artery disease On statin Hypertension On amlodipine Losartan/hydrochlorothiazide and metoprolol succinate Will monitor closely History of hepatitis C s/p treatment with Harvoni as per heme-onc notes History of hepatocellular carcinoma Diagnosed based on MRI findings in early 2021 Status post Y90 treatment in 08/2021 Status post bland embolization and microwave ablation of segment 7 in January 2022 MRI of liver on 10/13/2024 shows disease progression in the liver Heme-onc talked about role of systemic treatment can be considered but patient was not interested in pursuing systemic treatment. Following with heme-onc DVT prophylaxis SCDs Disposition Telemetry Full code. Addendum : Am labs trop 227. Repeat ekg no acute st changes. Seems asymptomatic. Platelets 54. Will follow echo. cardiology consulted. History of Present Illness Chief Complaint: Altered mental status Primary Care Provider: Walt Fofana 74-year-old male with past med history significant for dyslipidemia, hepatic encephalopathy, peripheral artery disease, hypertension, varicose veins of lower extremity, alcohol liver cirrhosis, iron deficiency anemia, hepatocellular carcinoma was brought in by because of confusion. found him on the floor around 4:30 PM. Around 4:00 PM patient was upright and walking around the house though complained he did not feel good. And when the came back around 4:30 PM she found him on the floor. As per ER patient seems to have confusion for last couple of weeks. thought his ammonia level was very elevated. In the ER he ammonia level came back 85. Patient says he was just laying on the floor and thought that he fell down. Patient currentlyis alert and awake and oriented to name and place. Could not tell current dates. Somewhat restless. Somewhat upset that we came late to see him. is not in the room currently. Patient denies any headache. Denies any chest pain. Denies shortness of breath. Denies cough. Denies nausea. Denies abdominal pain. Hemodynamics are okay. Past medical history. As mentioned above. Past surgical history. Complex cataract surgery. Colonoscopy with biopsy. EGD. EGD with endoscopic ultrasound. IR arterial embolization. IR cancer and ablation. Social history. . Quit smoking 2020. Smoked 0.3 pack a day for 32 years. History of alcoholism. Last drink April 2021 as per [facility]. No IV drug use per [facility] Family history. Father had hypertension. Mother had hypertension. Sister had ovarian cancer. Allergies Allergy/AdvReac Type Severity Reaction Status Date / Time No Known Allergies Allergy Verified 12/18/24 22:42 Home Medications Medication Instructions Recorded Confirmed Type metoprolol succinate 50 mg 50 mg PO BID #60 tabs 04/12/19 12/18/24 Rx tablet,extended release 24 hr ferrous sulfate 325 mg (65 mg 325 mg PO QAM 10/14/20 12/18/24 History iron) tablet,delayed release furosemide 20 mg tablet 10 mg PO QAM Edema 10/14/20 12/18/24 History amlodipine 5 mg tablet 5 mg PO HS 06/24/22 12/18/24 History metformin 500 mg tablet 500 mg PO BID 06/24/22 12/18/24 History cholecalciferol (vitamin D3) 50 50 mcg PO QPM 12/18/24 12/18/24 History mcg (2,000 unit) capsule (Vitamin D3) cyanocobalamin (vitamin B-12) 1,000 mcg PO QAM 12/18/24 12/18/24 History 1,000 mcg tablet (Vitamin B-12) losartan 50 mg-hydrochlorothiazide 1 tab PO QAM 12/18/24 12/18/24 History 12.5 mg tablet rckncmdq-czr-mnggj acid 500 1 tab PO QAM 12/18/24 12/18/24 History mcg-lycopene 300 mcg-lutein 250 mcg tablet ([employer]) omega 2-rgx-boq-fish oil 1,000 mg 1 cap PO QAM 12/18/24 12/18/24 History (120 mg-180 mg) capsule (Fish Oil) rifaximin 550 mg tablet (Xifaxan) 550 mg PO BID 12/18/24 12/18/24 History rosuvastatin 40 mg tablet (Crestor) 40 mg PO QAM 12/18/24 12/18/24 History thiamine HCl (vitamin B1) 100 mg 200 mg PO QAM 12/18/24 12/18/24 History tablet (Vitamin B-1) Past Med/Surg History Problem List (Updated 12/19/24 @ 02:08 by Jose Freedman MD) Hepatic encephalopathy Hypomagnesemia (Acute) Adverse drug effect (Acute) Hyperammonemia (Acute) AMS (altered mental status) (Acute) Thrombocytopenia Thrombocytopathia Encounter for pre-operative examination PAD (peripheral artery disease) Hypertrophic cardiomyopathy Cirrhosis (Chronic) INR 1.3 Cardiac murmur (Chronic) mild , hypertrophy with GINNY mitral valve - peak gradient 30mmHg Hyperlipidemia (Chronic) Hypertension (Chronic) Hearing deficit (Chronic) Prediabetes (Chronic) metformin daily Hepatitis C (Chronic) tx and no longer has Medical History Cardiac murmur mild , hypertrophy with GINNY mitral valve - peak gradient 30mmHg Cirrhosis INR 1.3 GI bleed Hearing deficit Hepatitis C tx and no longer has History of liver cancer 01/2021--per had radiation, embolization @ [facility] [place] Hyperlipidemia Hypertension Hypertrophic cardiomyopathy PAD (peripheral artery disease) Prediabetes metformin daily Thrombocytopenia Surgical History History of colonoscopy History of esophagogastroduodenoscopy (EGD) History of left cataract extraction History of tooth extraction all upper teeth Family History Other No family history of adverse response to anesthesia Social History Smoking Status: Current every day smoker Tobacco Type: Cigarettes Cigarettes Per Day: 3 a day; Second Hand Exposure: No; Do You Dip or Chew Tobacco: No; Tobacco Cessation Education Requested by Patient: No Hx Alcohol Use: No Hx Substance Use: Yes Last Used Substance: Hours (ago) Preferred Language: Finnish Communication Ability: Effective Diet Therapist Required: No Beliefs That Will Affect Care: None Current Living Situation: Spouse Other Information That Helps Us Care for You: No Feels Safe at Home: Yes Safety Concerns: Feels Safe At This Time Assistive Devices: None Review of Systems Review of Systems: Other confused Physical Exam Physical Exam: General- Not in distress Head- atraumatic Eyes- PERRL. ENT- oropharynx clear Neck- supple, no JVD. Lungs- clear to auscultation no wheezing or crackles Heart- regular rhythm; no murmur, no gallop. Abdomen- normal bowel sounds, soft, nontender, no distension Extremities- no pretibial edema, no erythema seen Neuro- alert, oriented x 2; PERRL, no facial palsy; no dysarthria; moves extremities Results & Data Results & Data Vital Signs (Past 12 Hours) Vital Signs Temp Pulse Resp BP Pulse Ox O2 Del Method 12/19/24 01:51 69 19 93 12/19/24 01:36 72 18 94 12/19/24 01:30 109/60 12/19/24 01:24 73 20 94 12/19/24 01:21 71 20 93 12/19/24 01:10 79 12/19/24 01:09 83 24 93 Room Air 12/19/24 01:00 103/62 12/19/24 00:45 72 20 12/19/24 00:42 76 23 12/19/24 00:39 79 16 12/19/24 00:24 72 15 95 12/19/24 00:00 111/56 L 12/18/24 23:51 72 24 94 Room Air 12/18/24 23:45 72 20 93 Room Air 12/18/24 23:30 93/52 L 12/18/24 23:30 71 16 93 12/18/24 23:00 105/57 L 12/18/24 23:00 76 29 H 93 12/18/24 22:57 75 22 94 12/18/24 22:42 79 22 93 12/18/24 22:39 79 20 93 12/18/24 22:30 110/60 12/18/24 22:18 81 15 95 12/18/24 22:03 118/63 12/18/24 21:30 82 15 115/61 93 Room Air 12/18/24 21:11 94 Room Air 12/18/24 21:09 87 23 94 12/18/24 21:06 85 12/18/24 21:03 94 Room Air 12/18/24 20:55 37.4 C 86 17 126/63 94 Room Air Diagnostic Findings Laboratory Results WBC 5.30 K/ul (4.8-10.8) 12/18/24 20:32 RBC 3.76 M/uL (4.70-6.10) L 12/18/24 20:32 Hgb 12.2 g/dl (14.0-18.0) L 12/18/24 20:32 Hct 33.3 % (42.0-52.0) L 12/18/24 20:32 MCV 88.6 fL (80.0-100.0) 12/18/24 20:32 MCH 32.4 pg (25.0-34.0) 12/18/24 20:32 MCHC 36.6 g/dL (32.0-36.0) H 12/18/24 20:32 RDW Std Deviation 48.4 fL (36.4-46.3) H 12/18/24 20:32 RDW Coeff of Coleman 15.3 % (11.5-14.5) H 12/18/24 20:32 Plt Count 81 K/uL (130-400) L 12/18/24 20:32 MPV 11.0 fL (9.4-12.4) 12/18/24 20: Immature Gran % (Auto) 0.4 % 12/18/24 20: Neut % (Auto) 72.7 % 12/18/24 20: Lymph % (Auto) 13.4 % 12/18/24: Linn % (Auto) 8.5 % 12/18/24 20: Eos % (Auto) 4.2 % 12/18/24: Baso % (Auto) 0.8 % 12/18/24: Neut # (Auto) 3.86 K/uL (1.40-6.50) 12/18/24 20: Lymph # (Auto) 0.71 K/uL (1.20-3.40) L 12/18/24 20: Linn # (Auto) 0.45 K/uL (0.11-0.59) 12/18/24 20: Eos # (Auto) 0.22 K/uL (0.00-0.50) 12/18/24: Baso # (Auto) 0.04 K/uL (0.00-0.20) 12/18/24: Immature Gran # (Auto) 0.02 K/uL (0.01-0.20) 12/18/24: Polychromasia 1+ 12/18/24: PT 14.1 Seconds (9.0-12.0) H 12/18/24: INR 1.3 (0.9-1.1) H 12/18/24: VBG pH 7.41 (7.36-7.41) 12/18/24: VBG pCO2 34 mmHg (38-50) L 12/18/24: VBG pO2 71 mmHg 12/18/24: VBG HCO3 22 mmol/L 12/18/24: VBG O2 Saturation 96.2 % 12/18/24: VBG Base Excess -2.4 mEq/L 12/18/24: Sodium 140 mmol/L (136-145) 12/18/24: Potassium 3.9 mmol/L (3.5-5.1) 12/18/24:32 Chloride 109 mmol/L (98-107) H 12/18/24 20:32 Carbon Dioxide 22 mmol/L (21-32) 12/18/24 20:32 Anion Gap 9 (3-11) 12/18/24 20:32 BUN 15 mg/dl (6-23) 12/18/24 20:32 Creatinine 1.22 mg/dl (0.6-1.4) 12/18/24 20:32 Est Cr Clr Drug Dosing 51.9 ml/min 12/18/24 20:32 eGFR 61.83 12/18/24 20:32 BUN/Creatinine Ratio 12.3 (10-20) 12/18/24 20:32 Glucose 100 mg/dl (70-99(Fasting)) H 12/18/24 20:32 Lactate 1.0 mmol/L (0.4-2.0) 12/18/24 21:42 Calcium 9.0 mg/dl (8.6-10.3) 12/18/24 20:32 Magnesium 1.6 mg/dl (1.7-2.4) L 12/18/24 20:32 Total Bilirubin 1.4 mg/dl (0.2-1.0) H 12/18/24 20:32 Direct Bilirubin 0.3 mg/dl (0-0.2) H 12/18/24 20:32 AST 62 U/L (13-39) H 12/18/24 20:32 ALT 43 U/L (7-52) 12/18/24 20:32 Alkaline Phosphatase 102 U/L (34-104) 12/18/24 20:32 Ammonia 85.0 umol/L (18-72) H 12/18/24 21:07 Troponin I High Sens 41.0 pg/ml (0-20) H 12/18/24 23:02 Total Protein 6.4 gm/dl (6.0-8.3) 12/18/24 20:32 Albumin 3.3 gm/dl (3.4-5.0) L 12/18/24 20:32 Procalcitonin 0.07 ng/ml (0-0.5) 12/18/24 20:32 Impressions Chest X-Ray 12/18/24 21:06 Exam(s): XR CXR 1 VIEW EXAM: XR Chest, 1 View CLINICAL HISTORY: Reason for exam: Sepsis. TECHNIQUE: Frontal view of the chest. COMPARISON: 06/01/2024 FINDINGS: Lungs: Left lower lobe infiltrate and small left pleural effusion. Pleural space: See above. Heart: Unremarkable. No cardiomegaly. Mediastinum: Unremarkable. Normal mediastinal contour. Bones/joints: Unremarkable. No acute fracture. IMPRESSION: Left lower lobe pneumonia with reactive left pleural effusion Electronically signed by: Boby Albarado MD 12/18/24 23:[address] 12/18/24 21:24 Exam(s): CT C SPINE EXAM: CT Cervical Spine Without Intravenous Contrast CLINICAL HISTORY: Reason for exam: trauma. TECHNIQUE: Axial computed tomography images of the cervical spine without intravenous contrast. Automated exposure control was utilized for the study. A dose lowering technique was utilized adhering to the principles of ALARA. COMPARISON: No relevant prior studies available. FINDINGS: Vertebrae: Unremarkable. No acute fracture. Discs/spinal canal/neural foramina: No acute findings. No spinal canal stenosis. Soft tissues: Left pleural effusion. IMPRESSION: No evidence of acute cervical spine pathology. Electronically signed by: Samantha Nelson MD 12/18/24 23:[address] 12/18/24 21:24 Exam(s): CT HEAD Without Contrast EXAM: CT Head Without Intravenous Contrast CLINICAL HISTORY: Reason for exam: trauma. TECHNIQUE: Axial computed tomography images of the head/brain without intravenous contrast. CTDI is 23.22 mGy and DLP is 484.89 mGy-cm. Automated exposure control was utilized for the study. A dose lowering technique was utilized adhering to the principles of ALARA. COMPARISON: Prior head CT from October 03, 2020. FINDINGS: This study is suboptimal secondary to motion artifact. Brain: Unremarkable. No hemorrhage. Moderate nonspecific white matter changes. No edema. Ventricles: Advanced ventriculomegaly. Bones/joints: Unremarkable. No acute fracture. Soft tissues: Unremarkable. Sinuses: Unremarkable as visualized. No acute sinusitis. Mastoid air cells: Unremarkable as visualized. No mastoid effusion. IMPRESSION: No evidence of acute intracranial pathology. Electronically signed by: Samantha Nelson MD 12/18/24 23:05 PM ECG Additional Comments: ECG. Sinus rhythm with first-degree AV block with rate of 88. Right bundle branch block. Left anterior fascicular block. Bifascicular block. Left ventricle hypertrophy. QTc 520 Code Status & VTE Plan VTE Prophylaxis Plan VTE Prophylaxis will be ordered: Yes
[2024-12-19] MEDS: LACTULOSE SYRUP 20 GM/30 ML UDC PO STA (02:18)
[2024-12-19] MEDS ORDERED: NITROGLYCERIN SL 0.4 MG/TAB TAB SL PRN (03:32)
[2024-12-19] MEDS ORDERED: GLUCAGON FOR INJ 1 MG VIAL SQ PRN (03:32)
[2024-12-19] MEDS ORDERED: DEXTROSE 50% 50 ML SYRINGE IV PRN (03:32)
[2024-12-19] MEDS ORDERED: CARBOHYDRATES FOR HYPOGLYCEMIA PO PRN (03:32)
[2024-12-19] MEDS ORDERED: GLUCOSE 40% GEL 15 GM TUBE PO PRN (03:32)
[2024-12-19] MEDS ORDERED: GLUCOSE 10 TAB/TUBE PO PRN (03:32)
[2024-12-19] MEDS: SODIUM CHLORIDE 0.9% 1,000 ML IV SCH (04:00)
[2024-12-19 05:44] LABS: Hematocrit (blood only) 29.1 % (42.0-52.0); Hemoglobin 10.4 g/dl (14.0-18.0); Immature Granulocytes # (auto) 0.01 K/uL (0.01-0.20); Immature Granulocytes % (auto) 0.2 %; Mean Corpuscular Hemoglobin 32.3 pg (25.0-34.0); Mean Corpuscular Volume 90.4 fL (80.0-100.0); Platelet Count 54 K/uL (130-400); RDW Standard Deviation 50.1 fL (36.4-46.3); Red Blood Count 3.22 M/uL (4.70-6.10); White Blood Count 4.09 K/ul (4.8-10.8)
[2024-12-19 06:01] LABS: Alanine Aminotransferase 33.0 U/L (7-52); Alkaline Phosphatase 78.0 U/L (34-104); Anion Gap 4.0 (3-11); Bilirubin,Total 0.9 mg/dl (0.2-1.0); Blood Urea Nitrogen 14.0 mg/dl (6-23); Calcium 8.2 mg/dl (8.6-10.3); Carbon Dioxide 24.0 mmol/L (21-32); Chloride 115.0 mmol/L (98-107); Creatinine Clr Calc Pharmacy 52.8 ml/min; Glucose 101.0 mg/dl (70-99(Fasting)); Magnesium 1.8 mg/dl (1.7-2.4); Potassium 3.8 mmol/L (3.5-5.1); Sodium 143.0 mmol/L (136-145); Total Protein 5.5 gm/dl (6.0-8.3)
[2024-12-19 07:24] LABS: Hemoglobin A1C 5.0 % (4.5-5.6)
[2024-12-19] MEDS: INSULIN ASPART PER UNIT CHARGE SC SCH (08:04)
--- NOTE | 2024-12-19 08:24 | Gastrointestinal Consultation ---
Date of Consultation December 19, 2024 Assessment & Plan (1) Hepatic encephalopathy: 74 year old with history of PAD, HTN, HAZEL, dyslipidemia, ETOH cirrhosis, MELD 9, HCV (treated w Meli), HCC s/p Y90 in 2021 w/ recurrent HCC s/p bland embolization and microwave ablation following with [facility] and [facility]ology admitted w/ HE 1. Hepatic encephalopathy - Full infectious workup - Chest XR concerning for PNA - Head CT negative - Ammonia level improving - Oral lactulose titrated to 3 BMs daily - Continue Xifaxan 550 twice daily - Follow up with [facility] GI as OP 2. Elevated troponin, EKG changes - Appreciate cardiology evaluation I spent a total of 60 minutes on the date of service in review of patient's record, and previously obtained information in person and appropriate medical visit, discussion and education of plan, with patient and/or caregiver, placing orders for tests/referral/procedures as medically necessary and documentation of pertinent clinical information in patient's medical records for their visit today. Supervising Physician Co-Signing Physician Notes Hepatic encephalopathy. I believe this is aggravated by nonuse of lactulose. Though this was prescribed he does not take it. and patient seemed confused about the need for or understand the purpose. Reviewed in detail with them yesterday. Patient was also taking THC Gummies. Apparently the day of admission he had taken 1 and after 30 minutes to an hour had no effects he took a second 1 and then developed significant intoxication per his and patient report this may have played a role in his acute presentation. Have advised against the use of these type of medications and the risk of accidental over ingestion with THC Gummies. Management at this point recommend lactulose and Xifaxan combination. History of Present Illness Reason for Consultation: HE Requesting Physician: Andrez Garcia DO Attending Physician: Andrez Garcia DO History of Present Illness 74 year old with history of PAD, HTN, HAZEL, dyslipidemia, ETOH cirrhosis, MELD 9, HCV (treated w Meli), HCC s/p IR embolization in 2021 w/ recurrent HCC s/p IR embolization of HCC on 07/02/2024 following with [facility] GI admitted w/ HE. GI was asked to evaluate. Pt is awake, oriented to self only. Suggests the details leading up to his admission are unclear but tell sme his [place] him on the [place] after she returned from work. This AM he is feeling well. Denies abdominal pain. No nausea/vomiting. Denies any blakc or bloody stools. No fever, chills, CP, SOB. + troponin elevation + abnormal EKG + abnormal chest XR concerning for PNA + elevated ammonia 85 EUS 2023: There was no sign of significant pathology in the common bile duct. There was no sign of significant pathology in the gallbladder. There was abnormal echogenicity in the entire examined liver. This was hypoechoic, heterogenous and granular. A tissue diagnosis was obtained prior to this exam. This is consistent with cirrhosis. Endosonographic imaging of the pancreas showed sonographic changes consistent with moderate chronic pancreatitis. No specimens collected. EGD 2023: Normal esophagus. Z-line regular, 40 cm from the incisors. Gastritis. Biopsied.Normal examined duodenum. Allergies Allergy/AdvReac Type Severity Reaction Status Date / Time No Known Allergies Allergy Verified 12/18/24 22:42 Home Medications Medication Instructions Recorded Confirmed Type metoprolol succinate 50 mg 50 mg PO BID #60 tabs 04/12/19 12/18/24 Rx tablet,extended release 24 hr ferrous sulfate 325 mg (65 mg 325 mg PO QAM 10/14/20 12/18/24 History iron) tablet,delayed release furosemide 20 mg tablet 10 mg PO QAM Edema 10/14/20 12/18/24 History amlodipine 5 mg tablet 5 mg PO HS 06/24/22 12/18/24 History metformin 500 mg tablet 500 mg PO BID 06/24/22 12/18/24 History cholecalciferol (vitamin D3) 50 50 mcg PO QPM 12/18/24 12/18/24 History mcg (2,000 unit) capsule (Vitamin D3) cyanocobalamin (vitamin B-12) 1,000 mcg PO QAM 12/18/24 12/18/24 History 1,000 mcg tablet (Vitamin B-12) losartan 50 mg-hydrochlorothiazide 1 tab PO QAM 12/18/24 12/18/24 History 12.5 mg tablet ufzmotwh-uil-tcemw acid 500 1 tab PO QAM 12/18/24 12/18/24 History mcg-lycopene 300 mcg-lutein 250 mcg tablet (Leora Clayton) omega 1-uvw-dso-fish oil 1,000 mg 1 cap PO QAM 12/18/24 12/18/24 History (120 mg-180 mg) capsule (Fish Oil) rifaximin 550 mg tablet (Xifaxan) 550 mg PO BID 12/18/24 12/18/24 History rosuvastatin 40 mg tablet (Crestor) 40 mg PO QAM 12/18/24 12/18/24 History thiamine HCl (vitamin B1) 100 mg 200 mg PO QAM 12/18/24 12/18/24 History tablet (Vitamin B-1) lactulose 10 gram/15 mL oral 30 g (45 mL) PO BID #2,700 mL 12/19/24 Rx solution Patient History Medical History History of liver cancer 01/2021--per had radiation, embolization @ [facility] Family History Other No family history of adverse response to anesthesia Social History Smoking Status: Current every day smoker Tobacco Type: Cigarettes Cigarettes Per Day: 3 a day; Second Hand Exposure: No; Do You Dip or Chew Tobacco: No; Hx Alcohol Use: No Hx Substance Use: Yes Last Used Substance: Hours (ago) Preferred Language: Turkmen Communication Ability: Effective 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 Physical Exam Constitutional: WD/WN, vitals as above Respiratory: normal respiratory effort, lungs clear to auscultation Cardiovascular: RRR, no murmur, no edema Gastrointestinal (Abdomen): normal bowel sounds, soft, nontender, no hepatosplenomegaly Skin: no rashes, warm and dry Results & Data Vital Signs (Past 12 Hours) Vital Signs Temp Pulse Pulse Resp BP BP Pulse Ox 12/19/24 07:45 97.2 F L 61 21 112/64 92 12/19/24 03:30 66 12/19/24 03:15 97.5 F L 57 L 19 130/62 95 12/19/24 02:51 64 17 92 12/19/24 02:45 68 15 93 12/19/24 02:21 69 16 95 12/19/24 02:18 67 19 95 07/23/25 01:51 69 19 93 12/19/24 01:36 72 18 94 12/19/24 01:30 109/60 12/19/24 01:24 73 20 94 12/19/24 01:21 71 20 93 12/19/24 01:10 79 12/19/24 01:09 83 24 93 12/19/24 01:00 103/62 12/19/24 00:45 72 20 12/19/24 00:42 76 23 12/19/24 00:39 79 16 12/19/24 00:24 72 15 95 12/19/24 00:00 111/56 L 12/18/24 23:51 72 24 94 12/18/24 23:45 72 20 93 12/18/24 23:30 93/52 L 12/18/24 23:30 71 16 93 12/18/24 23:00 105/57 L 12/18/24 23:00 76 29 H 93 12/18/24 22:57 75 22 94 12/18/24 22:42 79 22 93 12/18/24 22:39 79 20 93 12/18/24 22:30 110/60 12/18/24 22:18 81 15 95 12/18/24 22:03 118/63 12/18/24 21:30 82 15 115/61 93 12/18/24 21:11 94 12/18/24 21:09 87 23 94 12/18/24 21:06 85 12/18/24 21:03 94 12/18/24 20:55 99.3 F 86 17 126/63 94 O2 Del Method 12/19/24 07:45 Room Air 12/19/24 03:30 12/19/24 03:15 Room Air 12/19/24 02:51 12/19/24 02:45 12/19/24 02:21 12/19/24 02:18 12/19/24 01:51 12/19/24 01:36 12/19/24 01:30 12/19/24 01:24 12/19/24 01:21 12/19/24 01:10 12/19/24 01:09 Room Air 12/19/24 01:00 12/19/24 00:45 12/19/24 00:42 12/19/24 00:39 12/19/24 00:24 12/19/24 00:00 12/18/24 23:51 Room Air 12/18/24 23:45 Room Air 12/18/24 23:30 12/18/24 23:30 12/18/24 23:00 12/18/24 23:00 12/18/24 22:57 12/18/24 22:42 12/18/24 22:39 12/18/24 22:30 12/18/24 22:18 12/18/24 22:03 12/18/24 21:30 Room Air 12/18/24 21:11 Room Air 12/18/24 21:09 12/18/24 21:06 12/18/24 21:03 Room Air 12/18/24 20:55 Room Air Laboratory Results 12/19/24 12/19/24 12/19/24 Range/Units 07:58 05:25 03:17 WBC 4.09 L (4.8-10.8) K/ul RBC 3.22 L (4.70-6.10) M/uL Hgb 10.4 L (14.0-18.0) g/dl Hct 29.1 L (42.0-52.0) % MCV 90.4 (80.0-100.0) fL MCH 32.3 (25.0-34.0) pg MCHC 35.7 (32.0-36.0) g/dL RDW Std Deviation 50.1 H (36.4-46.3) fL RDW Coeff of Coleman 15.5 H (11.5-14.5) % Plt Count 54 L (130-400) K/uL MPV 10.9 (9.4-12.4) fL Immature Gran % (Auto) 0.2 % Neut % (Auto) 63.1 % Lymph % (Auto) 19.8 % [place] % (Auto) 11.0 % Eos % (Auto) 5.4 % Baso % (Auto) 0.5 % Neut # (Auto) 2.58 (1.40-6.50) K/uL Lymph # (Auto) 0.81 L (1.20-3.40) K/uL [place] # (Auto) 0.45 (0.11-0.59) K/uL Eos # (Auto) 0.22 (0.00-0.50) K/uL Baso # (Auto) 0.02 (0.00-0.20) K/uL Immature Gran # (Auto) 0.01 (0.01-0.20) K/uL Polychromasia PT (9.0-12.0) Seconds INR (0.9-1.1) VBG pH (7.36-7.41) VBG pCO2 (38-50) mmHg VBG pO2 mmHg VBG HCO3 mmol/L VBG O2 Saturation % VBG Base Excess mEq/L Sodium 143 (136-145) mmol/L Potassium 3.8 (3.5-5.1) mmol/L Chloride 115 H (98-107) mmol/L Carbon Dioxide 24 (21-32) mmol/L Anion Gap 4 (3-11) BUN 14 (6-23) mg/dl Creatinine 1.09 (0.6-1.4) mg/dl Est Cr Clr Drug Dosing 52.8 ml/min eGFR 70.78 BUN/Creatinine Ratio 12.8 (10-20) Glucose 101 H (70-99(Fasting)) mg/dl POC Glucose 92 160 H (70-99) mg/dl Estimat Average Glucose 97 mg/dl Hemoglobin A1c 5.0 (4.5-5.6) % Lactate (0.4-2.0) mmol/L Calcium 8.2 L (8.6-10.3) mg/dl Magnesium 1.8 (1.7-2.4) mg/dl Total Bilirubin 0.9 D (0.2-1.0) mg/dl Direct Bilirubin 0.2 (0-0.2) mg/dl AST 49 H (13-39) U/L ALT 33 (7-52) U/L Alkaline Phosphatase 78 (34-104) U/L Ammonia 61.0 (18-72) umol/L Troponin I High Sens 227.6 H* D (0-20) pg/ml Total Protein 5.5 L (6.0-8.3) gm/dl Albumin 3.0 L (3.4-5.0) gm/dl Procalcitonin (0-0.5) ng/ml 12/18/24 12/18/24 12/18/24 Range/Units 23:02 21:42 21:22 WBC (4.8-10.8) K/ul RBC (4.70-6.10) M/uL Hgb (14.0-18.0) g/dl Hct (42.0-52.0) % MCV (80.0-100.0) fL MCH (25.0-34.0) pg MCHC (32.0-36.0) g/dL RDW Std Deviation (36.4-46.3) fL RDW Coeff of Coleman (11.5-14.5) % Plt Count (130-400) K/uL MPV (9.4-12.4) fL Immature Gran % (Auto) % Neut % (Auto) % Lymph % (Auto) % [place]onder[place] % (Auto) % Eos % (Auto) % Baso % (Auto) % Neut # (Auto) (1.40-6.50) K/uL Lymph # (Auto) (1.20-3.40) K/uL [place] # (Auto) (0.11-0.59) K/uL Eos # (Auto) (0.00-0.50) K/uL Baso # (Auto) (0.00-0.20) K/uL Immature Gran # (Auto) (0.01-0.20) K/uL Polychromasia PT (9.0-12.0) Seconds INR (0.9-1.1) VBG pH 7.41 (7.36-7.41) VBG pCO2 34 L (38-50) mmHg VBG pO2 71 mmHg VBG HCO3 22 mmol/L VBG O2 Saturation 96.2 % VBG Base Excess -2.4 mEq/L Sodium (136-145) mmol/L Potassium (3.5-5.1) mmol/L Chloride (98-107) mmol/L Carbon Dioxide (21-32) mmol/L Anion Gap (3-11) BUN (6-23) mg/dl Creatinine (0.6-1.4) mg/dl Est Cr Clr Drug Dosing ml/min eGFR BUN/Creatinine Ratio (10-20) Glucose (70-99(Fasting)) mg/dl POC Glucose (70-99) mg/dl Estimat Average Glucose mg/dl Hemoglobin A1c (4.5-5.6) % Lactate 1.0 (0.4-2.0) mmol/L Calcium (8.6-10.3) mg/dl Magnesium (1.7-2.4) mg/dl Total Bilirubin (0.2-1.0) mg/dl Direct Bilirubin (0-0.2) mg/dl AST (13-39) U/L ALT (7-52) U/L Alkaline Phosphatase (34-104) U/L Ammonia (18-72) umol/L Troponin I High Sens 41.0 H (0-20) pg/ml Total Protein (6.0-8.3) gm/dl Albumin (3.4-5.0) gm/dl Procalcitonin (0-0.5) ng/ml 12/18/24 12/18/24 Range/Units 21:07 20:32 WBC 5.30 (4.8-10.8) K/ul RBC 3.76 L (4.70-6.10) M/uL Hgb 12.2 L (14.0-18.0) g/dl Hct 33.3 L (42.0-52.0) % MCV 88.6 (80.0-100.0) fL MCH 32.4 (25.0-34.0) pg MCHC 36.6 H (32.0-36.0) g/dL RDW Std Deviation 48.4 H (36.4-46.3) fL RDW Coeff of Coleman 15.3 H (11.5-14.5) % Plt Count 81 L (130-400) K/uL MPV 11.0 (9.4-12.4) fL Immature Gran % (Auto) 0.4 % Neut % (Auto) 72.7 % Lymph % (Auto) 13.4 % Pondera % (Auto) 8.5 % Eos % (Auto) 4.2 % Baso % (Auto) 0.8 % Neut # (Auto) 3.86 (1.40-6.50) K/uL Lymph # (Auto) 0.71 L (1.20-3.40) K/uL [place] # (Auto) 0.45 (0.11-0.59) K/uL Eos # (Auto) 0.22 (0.00-0.50) K/uL Baso # (Auto) 0.04 (0.00-0.20) K/uL Immature Gran # (Auto) 0.02 (0.01-0.20) K/uL Polychromasia 1+ PT 14.1 H (9.0-12.0) Seconds INR 1.3 H (0.9-1.1) VBG pH (7.36-7.41) VBG pCO2 (38-50) mmHg VBG pO2 mmHg VBG HCO3 mmol/L VBG O2 Saturation % VBG Base Excess mEq/L Sodium 140 (136-145) mmol/L Potassium 3.9 (3.5-5.1) mmol/L Chloride 109 H (98-107) mmol/L Carbon Dioxide 22 (21-32) mmol/L Anion Gap 9 (3-11) BUN 15 (6-23) mg/dl Creatinine 1.22 (0.6-1.4) mg/dl Est Cr Clr Drug Dosing 51.9 ml/min eGFR 61.83 BUN/Creatinine Ratio 12.3 (10-20) Glucose 100 H (70-99(Fasting)) mg/dl POC Glucose (70-99) mg/dl Estimat Average Glucose mg/dl Hemoglobin A1c (4.5-5.6) % Lactate (0.4-2.0) mmol/L Calcium 9.0 (8.6-10.3) mg/dl Magnesium 1.6 L (1.7-2.4) mg/dl Total Bilirubin 1.4 H (0.2-1.0) mg/dl Direct Bilirubin 0.3 H (0-0.2) mg/dl AST 62 H (13-39) U/L ALT 43 (7-52) U/L Alkaline Phosphatase 102 (34-104) U/L Ammonia 85.0 H (18-72) umol/L Troponin I High Sens 35.4 H (0-20) pg/ml Total Protein 6.4 (6.0-8.3) gm/dl Albumin 3.3 L (3.4-5.0) gm/dl Procalcitonin 0.07 (0-0.5) ng/ml PG Care Time/CCT Total # of Minutes Spent Total Time Spent with Patient: Total time spent is greater than 50% in coordination of care (as documented) at patient's floor/unit and/or counseling patient: Coding Level of Care Code 59137 INT INP/OBS CARE Diagnoses Hepatic encephalopathy K76.82
[2024-12-19] MEDS: LACTULOSE SYRUP 20 GM/30 ML UDC PO SCH (08:58)
[2024-12-19] MEDS: CYANOCOBALAMIN (B-12) 500 MCG TABLET PO SCH (08:59)
[2024-12-19] MEDS: ROSUVASTATIN CALCIUM 20 MG TAB PO SCH (08:59)
[2024-12-19] MEDS: METOPROLOL SUCC 50MG EXT REL TAB PO SCH (08:59)
[2024-12-19] MEDS: LOSARTAN/HCTZ 50/12.5MG TAB PO SCH (08:59)
[2024-12-19] MEDS: FERROUS SULFATE 325 MG TAB PO SCH (08:59)
[2024-12-19] MEDS: THIAMINE HCL 100 MG TAB PO SCH (08:59)
[2024-12-19] MEDS ORDERED: MULTIVIT MIN FA LYCOPEN LUTEIN PO SCH (09:00)
[2024-12-19] MEDS: DOXYCYCLINE HYCLATE 100 MG in DEXTROSE 5% MINI-B 100 ML IV SCH (09:00)
--- NOTE | 2024-12-19 09:34 | CT Scan Report ---
CT OF THE CHEST WITHOUT IV CONTRAST CLINICAL HISTORY: Possible pneumonia on chest radiograph. Hepatocellular carcinoma. COMPARISON STUDY: Chest radiograph December 18, 2024. PET/CT February 08, 2024. Chest CT January 04, [address] DOSE: 508.62 mGy.cm TECHNIQUE: Axial images of the chest were obtained without IV contrast. Images were reviewed in the axial, sagittal, and coronal planes. IV contrast was not administered for this examination. Automat ed exposure control was utilized for the study. A dose lowering technique was utilized adhering to t he principles of ALARA. FINDINGS: The heart is moderately enlarged. Extensive coronary artery calcification is present. Ther e is no pericardial effusion. A moderate left pleural effusion is present. There is a trace right ple ural effusion. No pneumothorax. Subpleural left lower lobe opacity favors atelectasis. Pneumonia is c onsidered less likely. Interlobular septal thickening is noted. A lobulated 1.8 cm nodule within the superior segment of the left lower lobe on image 109 has increased in size since PET/CT of February 08, 2024 when it measured 7 mm. A tiny 4 mm right upper lobe nodule on image 110 is new since prior C T. No suspicious lesions within the bony thorax are present. Mildly enlarged mediastinal lymph nodes are similar to prior CT. A right lower paratracheal lymph node on image 87 measures 1.9 x 1.1 cm. Cir rhotic liver is again noted. A hypodense focus within the right hepatic lobe with volume loss measuri ng 9.1 x 6.7 cm is suboptimally assessed on unenhanced exam. This appears slightly more conspicuous t wade on prior PET/CT. Upper abdominal varices and splenomegaly are again noted. Dilatation of the panc reatic duct within the pancreatic tail with associated glandular atrophy was shown on CT of January 04, 2024. This is likely related to a large 1.3 cm intraductal calculus within the main pancreatic duct. Numerous additional calculi are present within the pancreatic body and tail. There is no peripancrea tic stranding. IMPRESSION: 1. Moderate left pleural effusion. Subpleural left lower lobe opacity which favors atelectasis. No de finite consolidation to suggest pneumonia. 2. Cardiomegaly with interstitial pulmonary edema. 3. Increase in size of a lobulated 1.8 cm left lower lobe pulmonary nodule since PET/CT of February 08, 2024. This is highly suggestive of a neoplastic process and favors metastatic disease although a primary lung malignancy could appear similar. Indeterminate new 4 mm right upper lobe nodule 4. Cirrhotic liver with evidence for portal hypertension. 9.1 x 6.7 cm hypodense focus with volume lo ss within the right hepatic lobe, slightly increased in conspicuity since prior PET/CT. This is subop timally assessed on unenhanced exam and recurrent tumor cannot be excluded. 5. Mildly enlarged mediastinal lymph nodes, unchanged since prior exam. These are likely benign. 6. Redemonstration of a calculus within the pancreatic duct with associated pancreatic ductal dilatat ion and evidence for chronic pancreatitis involving the pancreatic tail. ACT 112: Negative or not required by law. Electronically signed by: Kirk Arias M.D. 12/19/2024 9:33 AM
--- NOTE | 2024-12-19 09:48 | Discharge Summary ---
Discharge Summary Date of Service December 19, 2024 Principal Dx & Hospital Course #1 = Principal Diagnosis (1) Hepatic encephalopathy: 74-year-old male with past med history significant for dyslipidemia, hepatic encephalopathy, peripheral artery disease, hypertension, varicose veins of lower extremity, alcohol liver cirrhosis, iron deficiency anemia, hepatocellular carcinoma was brought in by because of confusion. found him on the floor around 4:30 PM. Around 4:00 PM patient was upright and walking around the house though complained he did not feel good. And when the came back around 4:30 PM she found him on the floor. As per ER patient seems to have confusion for last couple of weeks. thought his ammonia level was very elevated. In the ER he ammonia level came back 85. Patient says he was just laying on the floor and thought that he fell down. Patient currentlyis alert and awake and oriented to name and place. Could not tell current dates. Somewhat restless. Somewhat upset that we came late to see him. is not in the room currently. Patient denies any headache. Denies any chest pain. Denies shortness of breath. Denies cough. Denies nausea. Denies abdominal pain. Hemodynamics are okay. Hepatic encephalopathy Ammonia level 85 Continue home Xifaxan Placed on lactulose Follow repeat levels in a.m. Gentle fluids Consult GI in a.m. for further recommendation Possible pneumonia on chest x-ray Empiric Rocephin and Doxy Will follow ct chest. Hepatic liver cirrhosis alcoholic Thrombocytopenia and anemia Platelets 81 Total bilirubin 1.4. AST 62. ALT 43. Alk phos is 102 On Lasix as needed Follow labs Elevated troponin Abnormal EKG Initial troponin 35 repeat is 41 Will follow serial enzymes and echo and repeat EKG Prolonged QTc Avoid QT prolonging drugs Follow repeat EKG Peripheral artery disease On statin Hypertension On amlodipine Losartan/hydrochlorothiazide and metoprolol succinate Will monitor closely History of hepatitis C s/p treatment with Harvoni as per heme-onc notes History of hepatocellular carcinoma Diagnosed based on MRI findings in early 2021 Status post Y90 treatment in 08/2021 Status post bland embolization and microwave ablation of segment 7 in January 2022 MRI of liver on 10/13/2024 shows disease progression in the liver Heme-onc talked about role of systemic treatment can be considered but patient was not interested in pursuing systemic treatment. Following with heme-onc DVT prophylaxis SCDs Disposition Telemetry Full code. Addendum : Am labs trop 227. Repeat ekg no acute st changes. Seems asymptomatic. Platelets 54. Will follow echo. cardiology consulted. Admission HPI Per Admitting Provider 74-year-old male with past med history significant for dyslipidemia, hepatic encephalopathy, peripheral artery disease, hypertension, varicose veins of lower extremity, alcohol liver cirrhosis, iron deficiency anemia, hepatocellular carcinoma was brought in by because of confusion. found him on the floor around 4:30 PM. Around 4:00 PM patient was upright and walking around the house though complained he did not feel good. And when the came back around 4:30 PM she found him on the floor. As per ER patient seems to have confusion for last couple of weeks. thought his ammonia level was very elevated. In the ER he ammonia level came back 85. Patient says he was just laying on the floor and thought that he fell down. Patient currentlyis alert and awake and oriented to name and place. Could not tell current dates. Somewhat restless. Somewhat upset that we came late to see him. is not in the room currently. Patient denies any headache. Denies any chest pain. Denies shortness of breath. Denies cough. Denies nausea. Denies abdominal pain. Hemodynamics are okay. Past medical history. As mentioned above. Past surgical history. Complex cataract surgery. Colonoscopy with biopsy. EGD. EGD with endoscopic ultrasound. IR arterial embolization. IR cancer and ablation. Social history. . Quit smoking 2020. Smoked 0.3 pack a day for 32 years. History of alcoholism. Last drink April 2021 as per [facility]. No IV drug use per [facility] Family history. Father had hypertension. Mother had hypertension. Sister had ovarian cancer. Updated Medication List Medication Instructions Recorded Confirmed Type metoprolol succinate 50 mg 50 mg PO BID #60 tabs 04/12/19 12/18/24 Rx tablet,extended release 24 hr ferrous sulfate 325 mg (65 mg 325 mg PO QAM 10/14/20 12/18/24 History iron) tablet,delayed release furosemide 20 mg tablet 10 mg PO QAM Edema 10/14/20 12/18/24 History amlodipine 5 mg tablet 5 mg PO HS 06/24/22 12/18/24 History metformin 500 mg tablet 500 mg PO BID 06/24/22 12/18/24 History cholecalciferol (vitamin D3) 50 50 mcg PO QPM 12/18/24 12/18/24 History mcg (2,000 unit) capsule (Vitamin D3) cyanocobalamin (vitamin B-12) 1,000 mcg PO QAM 12/18/24 12/18/24 History 1,000 mcg tablet (Vitamin B-12) losartan 50 mg-hydrochlorothiazide 1 tab PO QAM 12/18/24 12/18/24 History 12.5 mg tablet hffuypvw-vel-hnhgm acid 500 1 tab PO QAM 12/18/24 12/18/24 History mcg-lycopene 300 mcg-lutein 250 mcg tablet ([employer]) omega 4-wrt-loy-fish oil 1,000 mg 1 cap PO QAM 12/18/24 12/18/24 History (120 mg-180 mg) capsule (Fish Oil) rifaximin 550 mg tablet (Xifaxan) 550 mg PO BID 12/18/24 12/18/24 History rosuvastatin 40 mg tablet (Crestor) 40 mg PO QAM 12/18/24 12/18/24 History thiamine HCl (vitamin B1) 100 mg 200 mg PO QAM 12/18/24 12/18/24 History tablet (Vitamin B-1) Hospital Stay Data Consultations 12/19/24 00:14 ED Decision to Admit Stat 12/19/24 08:00 Consult Cardiology Routine Consult Gastroenterology Routine Diagnostic Imagining Performed 12/18/24 21:24 CT cervical spine wo con Stat CT head/brain wo con Stat 12/19/24 08:30 CT chest diagnostic wo con Routine
--- NOTE | 2024-12-19 10:30 | Cardiology Consultation ---
Date of Consultation December 19, 2024 Assessment & Plan (1) Elevated troponin: (2) Severe left ventricular hypertrophy: (3) Aortic valve stenosis: (4) Mitral regurgitation: (5) PAD (peripheral artery disease): (6) Bilateral carotid bruits: (7) Thrombocytopenia: Plan Complex 74-year-old male with hepatocellular carcinoma, underlying cirrhosis, past hepatitis C admitted with hepatic encephalopathy, possible pneumonia, moderate left pleural effusion, concerning pulmonary nodules, elevated troponin. Patient without overt angina. EKG without acute change. Resting echocardiography with normal to hyperdynamic LV function without regional wall motion abnormalities. Non-RI causes of elevated troponin include critical illness in the setting of severe concentric left ventricular hypertrophy, infiltrative disease, moderate valvular disease, presumed obstructive coronary a rtery disease noting diffuse peripheral arterial disease including internal carotid artery stenosis and bilateral lower extremity peripheral arterial disease. Recommendations: * Conservative cardiac management as risks of further evaluation outweigh benefit noting marked thrombocytopenia, prior GI bleeding, multiple medical comorbidities. * Continue beta-luke therapy with metoprolol succinate. * Continue statin * Discontinue hydrochlorothiazide * Add furosemide * Add spironolactone * Reduce losartan dosing if needed for hypotension * Add aspirin 81 mg/day if/when able (currently appears contraindicated) Supervising Physician Co-Signing Physician Notes Patient was seen. Chart medications telemetry reviewed. Full assessment and plan as outlined by advanced provider above. Care management personally endorsed Elevated troponins incidentally observed on laboratory testing reflecting underlying medical morbidities no signs of acute coronary syndrome Would consider troponin elevation in this setting marker for increased morbidity and mortality History of Present Illness Reason for Consultation: Elevated troponin [facility] Jose Freedman Attending Phys[facility] Dr. Andrez Garcia, History of Present Illness Uri Quintero is a 74-year-old male patient who is being seen today [facility]. Reason for consultation is elevated troponin. Information difficult to discern from patient who does not appear to be a reliable source of information. The patient was found down on the floor, progressive confusion noted over the past few weeks. CT scan of the head was negative for acute intracranial pathology. Ammonia 85. Lactulose initiated with patient already evaluated by GI, lactulose titrated to 3 bowel movements per day, Xifaxan continued. Chest x-ray concerning for left lower lobe pneumonia. CT scan of the chest with multiple significant abnormalities including cardiomegaly with interstitial pulmonary edema, moderate left pleural effusion, left lower lobe pulmonary nodule suggestive of neoplastic process and favoring metastatic disease, new right upper lobe nodule, cirrhotic liver, calculus within the pancreatic duct with associated pancreatic ductal dilatation and evidence of chronic pancreatitis involving the pancreatic tail Cardiology consulted secondary to elevated troponin High-sensitivity troponin elevated as follows: 35.4 -> 41.0 -> 227.6 pg/mL Patient denies chest pain or discomfort, difficulty breathing, or palpitations Initial EKG revealed sinus rhythm at 88 bpm with a first-degree AV block, right bundle branch block, left anterior fascicular block, bifascicular block, LVH, possible old septal infarct. EKG this morning revealed sinus rhythm with low atrial focus, first-degree AV block, right bundle branch block, left anterior fascicular block, LVH Resting echocardiography with normal to hyperdynamic LV systolic function, without regional wall motion abnormalities. Severe concentric LVH noted along with elevated systolic gradient at mid ventricle. Aortic valve leaflets were calcified and with restricted mobility, moderate aortic valve stenosis, trace aortic regurgitation. Moderate mitral annular calcification with severe focal calcification of the posterior annulus, moderate mitral regurgitation with an eccentric and poorly visualized jet directed posterior observed. Doppler findings not suggestive of pulmonary hypertension. Inpatient telemetry monitoring reveals sinus throughout, with mild sinus bradycardia overnight Platelet count notably 54,000 today Allergies Allergy/AdvReac Type Severity Reaction Status Date / Time No Known Allergies Allergy Verified 12/18/24 22:42 Home Medications Medication Instructions Recorded Confirmed Type metoprolol succinate 50 mg 50 mg PO BID #60 tabs 04/12/19 12/18/24 Rx tablet,extended release 24 hr ferrous sulfate 325 mg (65 mg 325 mg PO QAM 10/14/20 12/18/24 History iron) tablet,delayed release furosemide 20 mg tablet 10 mg PO QAM Edema 10/14/20 12/18/24 History amlodipine 5 mg tablet 5 mg PO HS 06/24/22 12/18/24 History metformin 500 mg tablet 500 mg PO BID 06/24/22 12/18/24 History cholecalciferol (vitamin D3) 50 50 mcg PO QPM 12/18/24 12/18/24 History mcg (2,000 unit) capsule (Vitamin D3) cyanocobalamin (vitamin B-12) 1,000 mcg PO QAM 12/18/24 12/18/24 History 1,000 mcg tablet (Vitamin B-12) losartan 50 mg-hydrochlorothiazide 1 tab PO QAM 12/18/24 12/18/24 History 12.5 mg tablet pwsadlix-zzu-hkzoi acid 500 1 tab PO QAM 12/18/24 12/18/24 History mcg-lycopene 300 mcg-lutein 250 mcg tablet (Sentry Senior) omega 5-hqq-bsh-fish oil 1,000 mg 1 cap PO QAM 12/18/24 12/18/24 History (120 mg-180 mg) capsule (Fish Oil) rifaximin 550 mg tablet (Xifaxan) 550 mg PO BID 12/18/24 12/18/24 History rosuvastatin 40 mg tablet (Crestor) 40 mg PO QAM 12/18/24 12/18/24 History thiamine HCl (vitamin B1) 100 mg 200 mg PO QAM 12/18/24 12/18/24 History tablet (Vitamin B-1) lactulose 10 gram/15 mL oral 30 g (45 mL) PO BID #2,700 mL 12/19/24 Rx solution Patient History Medical History History of liver cancer 01/2021--per had radiation, embolization @ [facility] Family History Other No family history of adverse response to anesthesia Social History Smoking Status: Current every day smoker Tobacco Type: Cigarettes Cigarettes Per Day: 3 a day; Second Hand Exposure: No; Do You Dip or Chew Tobacco: No; Hx Alcohol Use: No Hx Substance Use: Yes Last Used Substance: Hours (ago) Preferred Language: Polish Communication Ability: Effective Proof Coins Inspector Required: No Beliefs That Will Affect Care: None Current Living Situation: Spouse Feels Safe at Home: Yes Assistive Devices: None Review of Systems Review of Systems: Unobtainable Physical Exam Physical Exam: General: NAD. Alert to person and place. HENT: Normocephalic. Atraumatic. Eyes: PER. Conjunctiva pink, sclera injected Neck: Harsh bilateral carotid bruits. No overt JVD. Heart: Regular at 60 bpm. Grade III/ systolic murmur. Gallop. No rub. PMI is nondisplaced. Lungs: Absent breath sounds at the left base. Diffuse expiratory wheezing. Abdomen: +BS. Soft. Nontender. Hepatomegaly. Extremities: Varicosities. No clubbing. No edema. Limited neurological examination is without focal deficits. Pulses: radial=1/4, posterior tibial=0/4. Results & Data Vital Signs (Past 12 Hours) Vital Signs Temp Pulse Pulse Resp BP BP Pulse Ox 12/19/24 10:00 59 L 12/19/24 10:00 12/19/24 07:45 36.2 C L 61 21 112/64 92 12/19/24 03:30 66 12/19/24 03:15 36.4 C L 57 L 19 130/62 95 12/19/24 02:51 64 17 92 12/19/24 02:45 68 15 93 12/19/24 02:21 69 16 95 12/19/24 02:18 67 19 95 12/19/24 01:51 69 19 93 12/19/24 01:36 72 18 94 12/19/24 01:30 109/60 12/19/24 01:24 73 20 94 12/19/24 01:21 71 20 93 12/19/24 01:10 79 12/19/24 01:09 83 24 93 12/19/24 01:00 103/62 12/19/24 00:45 72 20 12/19/24 00:42 76 23 12/19/24 00:39 79 16 12/19/24 00:24 72 15 95 12/19/24 00:00 111/56 L 12/18/24 23:51 72 24 94 12/18/24 23:45 72 20 93 12/18/24 23:30 93/52 L 12/18/24 23:30 71 16 93 12/18/24 23:00 105/57 L 12/18/24 23:00 76 29 H 93 12/18/24 22:57 75 22 94 12/18/24 22:42 79 22 93 12/18/24 22:39 79 20 93 12/18/24 22:30 110/60 O2 Del Method 12/19/24 10:00 12/19/24 10:00 Room Air 12/19/24 07:45 Room Air 12/19/24 03:30 07/23/25 03:15 Room Air 12/19/24 02:51 12/19/24 02:45 12/19/24 02:21 12/19/24 02:18 12/19/24 01:51 12/19/24 01:36 12/19/24 01:30 12/19/24 01:24 12/19/24 01:21 12/19/24 01:10 12/19/24 01:09 Room Air 12/19/24 01:00 12/19/24 00:45 12/19/24 00:42 12/19/24 00:39 12/19/24 00:24 12/19/24 00:00 12/18/24 23:51 Room Air 12/18/24 23:45 Room Air 12/18/24 23:30 12/18/24 23:30 12/18/24 23:00 12/18/24 23:00 12/18/24 22:57 12/18/24 22:42 12/18/24 22:39 12/18/24 22:30 Laboratory Results Cardiac Enzymes 12/18/24 12/18/24 12/19/24 Range/Units 20:32 23:02 05:25 AST 62 H 49 H (13-39) U/L Troponin I High Sens 35.4 H 41.0 H 227.6 H* D (0-20) pg/ml Coagulation 12/18/24 Range/Units 20:32 PT 14.1 H (9.0-12.0) Seconds CBC 12/18/24 12/19/24 Range/Units 20:32 05:25 WBC 5.30 4.09 L (4.8-10.8) K/ul RBC 3.76 L 3.22 L (4.70-6.10) M/uL Hgb 12.2 L 10.4 L (14.0-18.0) g/dl Hct 33.3 L 29.1 L (42.0-52.0) % Plt Count 81 L 54 L (130-400) K/uL Neut # (Auto) 3.86 2.58 (1.40-6.50) K/uL Lymph # (Auto) 0.71 L 0.81 L (1.20-3.40) K/uL [place] # (Auto) 0.45 0.45 (0.11-0.59) K/uL Eos # (Auto) 0.22 0.22 (0.00-0.50) K/uL Baso # (Auto) 0.04 0.02 (0.00-0.20) K/uL Comprehensive Metabolic Panel 12/18/24 12/19/24 Range/Units 20:32 05:25 Sodium 140 143 (136-145) mmol/L Potassium 3.9 3.8 (3.5-5.1) mmol/L Chloride 109 H 115 H (98-107) mmol/L Carbon Dioxide 22 24 (21-32) mmol/L BUN 15 14 (6-23) mg/dl Creatinine 1.22 1.09 (0.6-1.4) mg/dl Glucose 100 H 101 H (70-99(Fasting)) mg/dl Calcium 9.0 8.2 L (8.6-10.3) mg/dl Direct Bilirubin 0.3 H 0.2 (0-0.2) mg/dl AST 62 H 49 H (13-39) U/L ALT 43 33 (7-52) U/L Alkaline Phosphatase 102 78 (34-104) U/L Total Protein 6.4 5.5 L (6.0-8.3) gm/dl Albumin 3.3 L 3.0 L (3.4-5.0) gm/dl Intake and Output 12/18/24 12/19/24 12/19/24 22:59 06:59 14:59 Intake Total 999. 1118. / 2117. Balance 999 111 / Intake: IV 999 1018. / 2017.75 Magnesium Sulfate / D5w 1 gm In 100 / 100 100 ml @ 100 mls/hr IV NOW STA Rx#:[id number] Sodium Chloride 0.9% 1,000 ml @ 1000 / 1867.75 868.75 / 1867.75 125 mls/hr IV .Q8H EVELINA Rx#: [id number] [id number] SODIUM 2,000 mg In 50 / 50 50 ml @ 100 mls/hr IV NOW STA Rx#:[id number] Oral 100 / 100 Other: # Unmeasured Voids 1 Weight 79.7 kg 76.5 kg Weight Measurement Method [facility] Findings Telemetry: Sinus in the 50's and 60's PG Care Time/CCT Total # of Minutes Spent Total Time Spent with Patient: Total time spent is greater than 50% in coordination of care (as documented) at patient's floor/unit and/or counseling patient: Coding Level of Care Code 84722 IN/OBS CONSULT LVL 5,80M Diagnoses Elevated troponin R74.8 Severe left ventricular hypertrophy I51.7 Aortic valve stenosis I35.0 Mitral regurgitation I34.0 PAD (peripheral artery disease) I73.9 Bilateral carotid bruits R09.89 Thrombocytopenia D69.6
[2024-12-19 11:35] VITALS: BP 115/61; PULSE 53; RESP 22; TEMP 97.5; O2SAT 96
--- NOTE | 2024-12-19 15:07 | Discharge Summary ---
Discharge Summary Date of Service December 19, 2024 Principal Dx & Hospital Course #1 = Principal Diagnosis (1) Hepatic encephalopathy: Notes For Next Care Provider Medication Changes From Visit Lactulose 15 ml BID Admission HPI Per Admitting Provider [place] [address] History & Physical Report Signed Patient: ANDIE QUINTERO Admit Date: 12/19/24 MR#: [id number] Att Phy: Andrez Garcia DO Acct ID: [id number] Mandie Phy: Walt Fofana M.D. Date: 1950 Fam Phy: Age: 74 Location: 4 Sex: M Room/Bed: W457-2 Legal Sex: M cc: ~ *NOTICE TO RECEIVING LIBERTARIAN/AGENCY This information is strictly Confidential and protected under [place] law. [place] law prohibits you from making any further disclosure of this information unless further disclosure is expressly permitted by the written consent of the person to whom it pertains or is authorized by law. A general authorization for the release of medical or other information is not sufficient for this purpose. Hospital accepts no responsibility if the information is made available to any other person, INCLUDING THE PATIENT. Date of Service December 19, 2024 Assessment & Plan (1) Hepatic encephalopathy: Plan: 74-year-old male with past med history significant for dyslipidemia, hepatic encephalopathy, peripheral artery disease, hypertension, varicose veins of lower extremity, alcohol liver cirrhosis, iron deficiency anemia, hepatocellular carcinoma was brought in by because of confusion. found him on the floor around 4:30 PM. Around 4:00 PM patient was upright and walking around the house though complained he did not feel good. And when the came back around 4:30 PM she found him on the floor. As per ER patient seems to have confusion for last couple of weeks. thought his ammonia level was very elevated. In the ER he ammonia level came back 85. Patient says he was just laying on the floor and thought that he fell down. Patient currentlyis alert and awake and oriented to name and place. Could not tell current dates. Somewhat restless. Somewhat upset that we came late to see him. is not in the room currently. Patient denies any headache. Denies any chest pain. Denies shortness of breath. Denies cough. Denies nausea. Denies abdominal pain. Hemodynamics are okay. Hepatic encephalopathy Ammonia level 85 Continue home Xifaxan Placed on lactulose Follow repeat levels in a.m. Gentle fluids Consult GI in a.m. for further recommendation Possible pneumonia on chest x-ray Empiric Rocephin and Doxy Will follow ct chest. Hepatic liver cirrhosis alcoholic Thrombocytopenia and anemia Platelets 81 Total bilirubin 1.4. AST 62. ALT 43. Alk phos is 102 On Lasix as needed Follow labs Elevated troponin Abnormal EKG Initial troponin 35 repeat is 41 Will follow serial enzymes and echo and repeat EKG Prolonged QTc Avoid QT prolonging drugs Follow repeat EKG Peripheral artery disease On statin Hypertension On amlodipine Losartan/hydrochlorothiazide and metoprolol succinate Will monitor closely History of hepatitis C s/p treatment with Harvoni as per heme-onc notes History of hepatocellular carcinoma Diagnosed based on MRI findings in early 2021 Status post Y90 treatment in 08/2021 Status post bland embolization and microwave ablation of segment 7 in January 2022 MRI of liver on 10/13/2024 shows disease progression in the liver Heme-onc talked about role of systemic treatment can be considered but patient was not interested in pursuing systemic treatment. Following with heme-onc DVT prophylaxis SCDs Disposition Telemetry Full code. Addendum : Am labs trop 227. Repeat ekg no acute st changes. Seems asymptomatic. Platelets 54. Will follow echo. cardiology consulted. History of Present Illness Chief Complaint: Altered mental status Primary Care Provider: Walt Fofana 74-year-old male with past med history significant for dyslipidemia, hepatic encephalopathy, peripheral artery disease, hypertension, varicose veins of lower extremity, alcohol liver cirrhosis, iron deficiency anemia, hepatocellular carcinoma was brought in by because of confusion. found him on the floor around 4:30 PM. Around 4:00 PM patient was upright and walking around the house though complained he did not feel good. And when the came back around 4:30 PM she found him on the floor. As per ER patient seems to have confusion for last couple of weeks. thought his ammonia level was very elevated. In the ER he ammonia level came back 85. Patient says he was just laying on the floor and thought that he fell down. Patient currentlyis alert and awake and oriented to name and place. Could not tell current dates. Somewhat restless. Somewhat upset that we came late to see him. is not in the room currently. Patient denies any headache. Denies any chest pain. Denies shortness of breath. Denies cough. Denies nausea. Denies abdominal pain. Hemodynamics are okay. Past medical history. As mentioned above. Past surgical history. Complex cataract surgery. Colonoscopy with biopsy. EGD. EGD with endoscopic ultrasound. IR arterial embolization. IR cancer and ablation. Social history. . Quit smoking 2020. Smoked 0.3 pack a day for 32 years. History of alcoholism. Last drink April 2021 as per [facility]. No IV drug use per [facility] Family history. Father had hypertension. Mother had hypertension. Sister had ovarian cancer. Discharge Exam General- adult seen at bedside. His and nursing are present Head- atraumatic Eyes- PERRL, EOMI, anicteric ENT- oropharynx clear Neck- supple, no JVD, no adenopathy, no thyromegaly; Lungs- clear to auscultation and percussion Heart- regular rhythm; no murmur, no gallop, no rub appreciated Abdomen- normal bowel sounds, soft, nontender, no masses or hepatosplenomegaly Extremities- no pretibial edema, no calf tenderness; peripheral pulses intact Neuro- alert, oriented x 3; PERRL, EOMI; no facial palsy; no dysarthria; motor 5/5 bilaterally; no cogwheel rigidity; Skin- warm & dry Updated Medication List Medication Instructions Recorded Confirmed Type metoprolol succinate 50 mg 50 mg PO BID #60 tabs 04/12/19 12/18/24 Rx tablet,extended release 24 hr ferrous sulfate 325 mg (65 mg 325 mg PO QAM 10/14/20 12/18/24 History iron) tablet,delayed release furosemide 20 mg tablet 10 mg PO QAM Edema 10/14/20 12/18/24 History amlodipine 5 mg tablet 5 mg PO HS 06/24/22 12/18/24 History metformin 500 mg tablet 500 mg PO BID 06/24/22 12/18/24 History cholecalciferol (vitamin D3) 50 50 mcg PO QPM 12/18/24 12/18/24 History mcg (2,000 unit) capsule (Vitamin D3) cyanocobalamin (vitamin B-12) 1,000 mcg PO QAM 12/18/24 12/18/24 History 1,000 mcg tablet (Vitamin B-12) losartan 50 mg-hydrochlorothiazide 1 tab PO QAM 12/18/24 12/18/24 History 12.5 mg tablet odwpsvkr-yso-xrwyl acid 500 1 tab PO QAM 12/18/24 12/18/24 History mcg-lycopene 300 mcg-lutein 250 mcg tablet (Sentry Senior) omega 6-sss-maz-fish oil 1,000 mg 1 cap PO QAM 12/18/24 12/18/24 History (120 mg-180 mg) capsule (Fish Oil) rifaximin 550 mg tablet (Xifaxan) 550 mg PO BID 12/18/24 12/18/24 History rosuvastatin 40 mg tablet (Crestor) 40 mg PO QAM 12/18/24 12/18/24 History thiamine HCl (vitamin B1) 100 mg 200 mg PO QAM 12/18/24 12/18/24 History tablet (Vitamin B-1) lactulose 10 gram/15 mL oral 30 g (45 mL) PO BID #2,700 mL 12/19/24 Rx solution Hospital Stay Data Consultations 12/19/24 00:14 ED Decision to Admit Stat 12/19/24 08:00 Consult Cardiology Routine Consult Gastroenterology Routine Diagnostic Imagining Performed 12/18/24 21:24 CT cervical spine wo con Stat CT head/brain wo con Stat 12/19/24 08:30 CT chest diagnostic wo con Routine Pending Results Patient Have Any Pending Studies at Discharge: No Discharge Instructions Given to Patient (Per Discharging Provider) Check labs at hospital f/u F/U with hepatology/GI Total Time Total Time Spent Total Time Spent (In Minutes): A total of 40 minutes spent in discharge planning for Mr. Quintero Same Day Admit/Disch: Sum Hospital Course Hospital Course: Pt was admitted to the 5th floor. Lactulose was added to his regimen per GI. Cardiology was consulted and felt the pt had demand ischemia. PT and OT were consulted. Initially it was thought the pt had PNA on CXR. He had no symptoms. CT favored atelectasis. Abx were stopped. He was continued on rifampin. Per pt he did not fall. PT and OT were consulted and are familiar with Mr. Quintero. They felt he was at baseline. Pt's was in agreement. Pt was eminently demanding to go home as well despite recommendations. On discharge VS were stable. He was ambulating and toleration a diet. F/U with PCP and GI Status at Discharge Cognitive/behavioral status at discharge: Stable Oriented to person, place and month year. Time Spent with Patient Time attestation: Total time spent providing and/or coordinating discharge services: 40 min Provider Date of admission: 12/19/24 01:54 Primary care physician: Walt Fofana Consults: 12/19/24 00:14 ED Decision to Admit Stat Comment: Consulting Provider: Jose Freedman Reason For Exam: ams, elevated ammonia, liver ca Decision to Admit: Admit from Emergency Rm Weight: 79.7 kg Sepsis Fluid Vol Calc Actual Body Weight: 2391.00 [place]ons Body Weight (kg): 64.54 Sepsis Fluid Vol Calc Lyons Body Weight: 1936.20 Pt felt to have severe sepsis in ED: No Resides Grp Living Facility or Receives Chronic Hemodialysis: No Exposure to or Close Contact to Anyone Dx Infectious Disease: No 12/19/24 08:00 Consult Cardiology Routine Comment: Consulting Provider: Tl Hardin Reason For Exam: elevated trop. Consult Gastroenterology Routine Comment: Consulting Provider: Eric Amos Reason For Exam: hepatic encephalopathy
[2024-12-19] MEDS ORDERED: CHOLECALCIFEROL 25 MCG (1000 UNITS) TAB PO SCH (21:00)
[2024-12-19] MEDS ORDERED: cefTRIAXone SODIUM 2,000 MG/50 ML BAG IV SCH (23:00)
--- NOTE | 2024-12-21 14:51 | Electrocardiogram Report ---
Test Reason : Blood Pressure : */* mmHG Vent. Rate : 61 BPM Atrial Rate : * BPM P-R Int : * ms QRS Dur : 170 ms QT Int : 508 ms P-R-T Axes : * -58 93 degrees QTcB Int : 511 ms Sinus rhythm Right bundle branch block Left anterior fascicular block Bifascicular block Left ventricular hypertrophy with repolarization abnormality ( R in aVL , Romhilt-Gillespie ) Cannot rule out Anteroseptal infarct , age undetermined Abnormal ECG When compared with ECG of 18-Dec-2024 20:56, (unconfirmed) No significant change Confirmed by Giancarlo Esposito ([id number]) on 12/21/2024 2:51:28 PM Referred By: REFERRED SELF Confirmed By: Giancarlo Esposito
--- NOTE | 2024-12-22 06:37 | Electrocardiogram Report ---
Test Reason : Blood Pressure : */* mmHG Vent. Rate : 88 BPM Atrial Rate : 88 BPM P-R Int : 216 ms QRS Dur : 164 ms QT Int : 430 ms P-R-T Axes : 84 -62 79 degrees QTcB Int : 520 ms Sinus rhythm with 1st degree A-V block Right bundle branch block Left anterior fascicular block Bifascicular block Left ventricular hypertrophy with repolarization abnormality ( R in aVL , Romhilt-Gillespie ) Cannot rule out Septal infarct (cited on or before 16-Feb-2019) Abnormal ECG When compared with ECG of 01-Jun-2024 17:22, [place] interval has increased Confirmed by Giancarlo Esposito ([id number]) on 12/22/2024 6:36:32 AM Referred By: REFERRED SELF Confirmed By: Giancarlo Esposito
== END 2024-12-19 15:43 | disposition home or self-care (01) | DRG 442 ==
LOC: ED 20:51 → INTOOBSV 12-19 01:54 → SUATTDRO 12-19 01:54 → 4W 12-19 01:54